=== PATIENT | female | born 1975 | race Caucasian/White ===

== ENCOUNTER 2017-12-24 04:14 | Inpatient (IN) | payer MEDICARE, MEDICAID ==
[2017-12-24] VITALS (7 sets, daily range): BP systolic 97–158; BP diastolic 60–88; PULSE 52–88; RESP 16–17; TEMP 98.2–98.5; O2SAT 93–98
[~2017-12-24] VITALS: Ht 162.6 cm; Wt 106.7 kg
[~2017-12-24 04:14] MED LIST: DIAZ10TA2 PO; DICY1TAB26 PO; LISI-587 PO; LOVA40TA PO; NEUR800T PO; PERC10TA27 PO; PROT40TA PO; SUCR1S PO; VORT1TAB3 PO; WARF3TAB PO
[2017-12-24] MEDS ORDERED: MORPHINE SULFATE 8 MG/ML INJ IV PUSH ONE ×2 (04:30→05:45)
[2017-12-24] MEDS ORDERED: DIAZ10TA PO (04:31)
[2017-12-24] MEDS ORDERED: DOXE150C2 PO (04:31)
[2017-12-24] MEDS ORDERED: LOVA40TA PO (04:31)
[2017-12-24] MEDS ORDERED: XARE15TA PO (04:31)
[2017-12-24] MEDS ORDERED: GEMF600T PO (04:31)
[2017-12-24] MEDS ORDERED: VORT1TAB3 PO (04:31)
[2017-12-24] MEDS ORDERED: FENT25DI T-DERMAL (04:31)
[2017-12-24] MEDS ORDERED: HYDR-3583 PO (04:31)
[2017-12-24] MEDS ORDERED: LISI20TA3 PO (04:31)
[2017-12-24] MEDS ORDERED: AMBI10TA PO (04:31)
[2017-12-24] MEDS ORDERED: MORPHINE SULFATE 8 MG/ML INJ ONE ×2 (04:37→05:41)
--- NOTE | 2017-12-24 04:41 | PD ---
HPI Chief Complaint: Chest Pain Time Seen by Provider: 04:25 Travel History International Travel<30 days: No Contact w/Intl Traveler<30days: No Traveled to known affect area: No History of Present Illness HPI 42yo F with PMH of DVT on xarelto, anxiety and depression, HTN, anemia, chronic pain on fentanyl patch and oxycodone presents to the ED with 2 different complaints. Said she started having chest pain around 6pm and feels like someone is sitting on it. Said pain was constant and radiating to both arms. Associated with sob. Sublingual nitroglycerin help with chest pain a little. Pt also started having abdominal pain 2 hours later and pain is epigastric, severe. +vomiting. Denies any fever, dysuria, hematuria, new weakness or numbness. Pt has neuropathy in her legs. Pt had bariatric surgery, partial hysterectomy. PFSH Past Medical History Hx Anticoagulant Therapy: Yes (WARFARIN R/T DVT HX ) Arthritis: No Anxiety: Yes Depression: Yes Heart Rhythm Problems: Yes Cancer: No Cardiovascular Problems: Yes (HX OF IRREGULAR HEARTBEAT) High Cholesterol: Yes Chest Pain: No Congestive Heart Failure: No Deep Vein Thrombosis: Yes (X 2 RIGHT 1ST THEN LEFT (2 separate occurrences)) Endocrine: No Gastrointestinal Disorders: Yes (RECENT NAUSEA, VOMITING, ABD PAIN, DIARRHEA) GERD: No Genitourinary: No Hiatal Hernia: No Hypertension: Yes (WITH AND CONTINUED) Immune Disorder: No Medical other: Yes (HX OF BLOOD CLOTS, DEGENERATIVE DISC DISEASE) Musculoskeletal: Yes (STATES HX OF "BROKEN BACK") Neurologic: Yes (HX OF NEUROPATHY) Psychiatric: Yes Reproductive: Yes (HX OF PARTIAL HYSTERCTOMY) Respiratory: No Ulcer: No ?: Not : 4 Para: 2 Miscarriage: 1 : 1 Past Surgical History Section: Yes Gynecologic Surgery: Yes (CESEAREAN SX X 2, D & C, PARTIAL HYSTERECTOMY) Hysterectomy: Yes (PARTIAL ) Pacemaker: No Other Surgery: Yes Social History Alcohol Use: No Tobacco Use: No Substance Use: No Allergies-Medications (Allergen,Severity, Reaction): Coded Allergies: diatrizoate meglumine (Unverified Allergy, Severe, RESPIRATORY DISTRESS, ) IV IODINE gadobenic acid (Unverified Allergy, Severe, RESPIRATORY DISTRESS, 03/24/17) IV IODINE gadodiamide (Unverified Allergy, Severe, RESPIRATORY DISTRESS, 03/24/17) IV IODINE gadoteridol (Unverified Allergy, Severe, RESPIRATORY DISTRESS, 03/24/17) IV IODINE iodixanol (Unverified Allergy, Severe, RESPIRATORY DISTRESS, 03/24/17) IV IODINE iohexol (Unverified Allergy, Severe, RESPIRATORY DISTRESS, 03/24/17) IV IODINE penicillin G (Unverified Allergy, Severe, Hives, 03/24/17) Reported Meds & Prescriptions Reported Meds & Active Scripts Active Reported Lisinopril-Hctz 20-25 Mg Tab 1 Tab PO DAILY Gemfibrozil 600 Mg Tab 600 Mg PO BIDAC Take 30 minutes prior to breakfast and dinner. Trintellix (Vortioxetine) 20 Mg Tab 20 Mg PO DAILY Diazepam 10 Mg Tab 10 Mg PO TID PRN Doxepin (Doxepin HCl) 150 Mg Cap 150 Mg PO HS Ambien (Zolpidem Tartrate) 10 Mg Tab 10 Mg PO HS PRN Lovastatin 40 Mg Tab 40 Mg PO HS Xarelto (Rivaroxaban) 15 Mg Tab 15 Mg PO DAILY Hydrocodone-Acetaminophen 10-325 mg Tab 1 Tab PO Q6H PRN Fentanyl Patch 72 HR (Fentanyl) 25 Mcg/Hr Patch 25 Mcg T-DERMAL Q72H Review of Systems Except as stated in HPI: all other systems reviewed are Neg Physical Exam Narrative GENERAL: 42yo F in moderate distress. SKIN: Focused skin assessment warm/dry. HEAD: Atraumatic. Normocephalic. EYES: Pupils equal and round. No scleral icterus. No injection or drainage. ENT: No nasal bleeding or discharge. Mucous membranes pink and moist. NECK: Trachea midline. No JVD. CARDIOVASCULAR: Regular rate and rhythm. No murmur appreciated. RESPIRATORY: No accessory muscle use. Clear to auscultation. Breath sounds equal bilaterally. GASTROINTESTINAL: Abdomen soft, +TTP epigastric ttp. +RUQ ttp. No rebound tenderness or guarding. MUSCULOSKELETAL: No obvious deformities. No clubbing. No cyanosis. No edema. NEUROLOGICAL: Awake and alert. No obvious cranial nerve deficits. Motor grossly within normal limits. Sensation intact. Normal speech. PSYCHIATRIC: Appropriate mood and affect; insight and judgment normal. Data Data Last Documented VS Vital Signs Date Time Temp Pulse Resp B/P (MAP) Pulse Ox O2 Delivery O2 Flow Rate FiO2 12/24/17 05:11 88 16 158/88 (111) 98 Nasal Cannula 2.00 12/24/17 04:30 98.5 Orders Orders Complete Blood Count With Diff (12/24/17 04:29) Comprehensive Metabolic Panel (12/24/17 04:29) Prothrombin Time / Inr (Pt) (12/24/17 04:29) Act Partial Throm Time (Ptt) (12/24/17 04:29) Troponin I (12/24/17 04:29) Lipase (12/24/17 04:29) Chest, Single Ap (12/24/17 04:29) Ct Abd/Pel W/O Iv Contrast (12/24/17 ) Urinalysis - C+S If Indicated (12/24/17 04:29) Morphine Inj (Morphine Inj) (12/24/17 04:30) Morphine Inj (Morphine Inj) (12/24/17 04:37) Ecg Monitoring (12/24/17 04:41) Bilateral Bp Monitoring (12/24/17 04:41) Iv Access Insert/Monitor (12/24/17 04:41) Oximetry (12/24/17 04:41) Metoclopramide Inj (Reglan Inj) (12/24/17 04:45) Morphine Inj (Morphine Inj) (12/24/17 05:45) Morphine Inj (Morphine Inj) (12/24/17 05:41) Diet Npo (12/24/17 Breakfast) Vital Signs (Adult) ROSEMARY.Q4H (12/24/17 06:07) Sodium Chlor 0.9% 1000 Ml Inj (Ns 1000 M (12/24/17 06:15) Troponin I (12/24/17 10:00) Troponin I (12/24/17 14:00) Morphine Inj (Morphine Inj) (12/24/17 06:15) Ondansetron Odt (Zofran Odt) (12/24/17 06:30) Admit Order (Ed Use Only) (12/24/17 06:36) Labs Laboratory Tests Test 12/24/17 05:04 12/24/17 05:12 12/24/17 05:45 White Blood Count 9.7 TH/MM3 Red Blood Count 4.97 MIL/MM3 Hemoglobin 12.9 GM/DL Hematocrit 39.6 % Mean Corpuscular Volume 79.8 FL Mean Corpuscular Hemoglobin 26.0 PG Mean Corpuscular Hemoglobin Concent 32.6 % Red Cell Distribution Width 14.5 % Platelet Count 193 TH/MM3 Mean Platelet Volume 10.4 FL Neutrophils (%) (Auto) 83.9 % Lymphocytes (%) (Auto) 12.9 % Monocytes (%) (Auto) 2.6 % Eosinophils (%) (Auto) 0.1 % Basophils (%) (Auto) 0.5 % Neutrophils # (Auto) 8.2 TH/MM3 Lymphocytes # (Auto) 1.3 TH/MM3 Monocytes # (Auto) 0.3 TH/MM3 Eosinophils # (Auto) 0.0 TH/MM3 Basophils # (Auto) 0.0 TH/MM3 CBC Comment DIFF FINAL Differential Comment Prothrombin Time 10.7 SEC Prothromb Time International Ratio 1.1 RATIO Activated Partial Thromboplast Time 23.0 SEC Urine Color YELLOW Urine Turbidity HAZY Urine pH 7.0 Urine Specific [place] 1.028 Urine Protein 30 mg/dL Urine Glucose (UA) NEG mg/dL Urine Ketones TRACE mg/dL Urine Occult Blood NEG Urine Nitrite NEG Urine Bilirubin NEG Urine Urobilinogen 2.0 MG/DL Urine Leukocyte Esterase TRACE Urine RBC 4 /hpf Urine WBC 4 /hpf Urine Squamous Epithelial Cells 21 /hpf Urine Hyaline Casts 3 /lpf Urine Mucus MANY /lpf Microscopic Urinalysis Comment CULT NOT INDICATED Blood Urea Nitrogen 13 MG/DL Creatinine 0.79 MG/DL Random Glucose 120 MG/DL Total Protein 7.9 GM/DL Albumin 4.0 GM/DL Calcium Level 8.5 MG/DL Alkaline Phosphatase 52 U/L Aspartate Amino Transf (AST/SGOT) 15 U/L Alanine Aminotransferase (ALT/SGPT) 18 U/L Total Bilirubin 0.4 MG/DL Sodium Level 139 MEQ/L Potassium Level 3.9 MEQ/L Chloride Level 108 MEQ/L Carbon Dioxide Level 25.3 MEQ/L Anion Gap 6 MEQ/L Estimat Glomerular Filtration Rate 79 ML/MIN Troponin I LESS THAN 0.02 NG/ML Lipase 157 U/L [facility] Medical Decision Making Medical Screen Exam Complete: Yes Emergency Medical Condition: Yes Interpretation(s) EKG: NSR 89bpm. Normal axis. No ST segment elevation or depression. TWI III. Differential Diagnosis Pancreatitis vs. cholecystis vs. gastritis vs. colitis vs. ACS vs. GERD vs. chronic pain Narrative Course 42yo F with 2 different complaints. Pt has abdominal pain with nausea and vomiting since 8pm. Pt did have an episode of vomiting here. Labs reviewed, no leukocytosis. H/H normal. Troponin negative. LFTs normal. Lipase normal. UA showed WBC 4. Culture not indicated. CXR normal. CT a/p showed questionable soft tissue mass within the left lower quadrant measuring 3.6 [address]. Repeat [address] of the abdomen and pelvis utilizing oral and IV contrast is suggested to further evaluate. Prior gastric bypass. Prior hysterectomy. Pt is allergic to contrast but said it was many years ago when she had a respiratory reaction to it. Can consider premedication and repeat CT. However , pt given multiple doses of morphine and is still in a lot of pain. Will admit for pain control, further evaluation of abdominal mass and chest pain. Discussed with Dr. Najera and accepted to his service. Diagnosis Primary Impression: Intractable abdominal pain Additional Impressions: Abdominal mass Qualified Codes: R19.04 - Left lower quadrant abdominal swelling, mass and lump OTHER CHEST PAIN Admitting Information Admitting Physician Requests: it Suri Baron DO December 24, 2017 04:41
[2017-12-24] MEDS ORDERED: METOCLOPRAMIDE HCL 10 MG/2 ML VIAL IV PUSH ONE (04:45)
[2017-12-24 05:19] LABS: AUTOMATED NEUTROPHIL # 8.2 TH/MM3 (1.8-7.7); BASOPHIL % 0.5 % (0.0-2.0); EOSINOPHIL % 0.1 % (0.0-4.0); HEMATOCRIT 39.6 % (35.0-46.0); HEMOGLOBIN 12.9 GM/DL (11.6-15.3); LYMPH % 12.9 % (9.0-44.0); LYMPHOCYTE # 1.3 TH/MM3 (1.0-4.8); MEAN CELL VOLUME 79.8 FL (80.0-100.0); MEAN CORPUSCULAR HGB CONC 32.6 % (32.0-36.0); MEAN PLATELET VOLUME 10.4 FL (7.0-11.0); MONO % 2.6 % (0.0-8.0); MONOCYTE # 0.3 TH/MM3 (0-0.9); NEUT % 83.9 % (16.0-70.0); PLATELET COUNT 193 TH/MM3 (150-450); RED BLOOD COUNT 4.97 MIL/MM3 (4.00-5.30); RED CELL DISTRIBUTION WIDTH 14.5 % (11.6-17.2); WHITE BLOOD COUNT 9.7 TH/MM3 (4.0-11.0)
--- NOTE | 2017-12-24 05:21 | RADRPT ---
EXAM DATE/TIME: 12/24/2017 05:01 [facility] COMPARISON: CHEST SINGLE AP, September 28, 2015, 10:09. INDICATIONS : Chest and abdominal pain. MEDICAL HISTORY : Hypertension. SURGICAL HISTORY : None. ENCOUNTER: Initial ACUITY: 1 day PAIN SCORE: 6/10 LOCATION: Bilateral chest FINDINGS: A single view of the chest demonstrates the lungs to be symmetrically aerated without evidence of mas s, infiltrate or effusion. The cardiomediastinal contours are unremarkable. Osseous structures are intact. CONCLUSION: Normal examination. Bossman Ford Jr., MD on December 24, 2017 at 5:18 Board Certified Radiologist. This report was verified electronically.
--- NOTE | 2017-12-24 05:24 | RADRPT ---
EXAM DATE/TIME: 12/24/2017 04:45 [facility] COMPARISON: CT ABDOMEN & PELVIS W/O CONTRAST, March 16, 2016, 13:03. INDICATIONS : Mid abdominal pain. ORAL CONTRAST: No oral contrast ingested. RADIATION DOSE: 11.36 CTDIvol (mGy) MEDICAL HISTORY : Hypertension. SURGICAL HISTORY : Gastric bypass. section.Hysterectomy. ENCOUNTER: Initial ACUITY: 1 day PAIN SCALE: 7/10 LOCATION: Bilateral middle abdomen. TECHNIQUE: Volumetric scanning of the abdomen and pelvis was performed. Using automated exposure control and ad justment of the mA and/or kV according to patient size, radiation dose was kept as low as reasonably achievable to obtain optimal diagnostic quality images. DICOM format image data is available electro nically for review and comparison. FINDINGS: LOWER LUNGS: The visualized lower lungs are clear. LIVER: Homogeneous density without lesion. There is no dilation of the biliary tree. No calcified gallston es. SPLEEN: Normal size without lesion. PANCREAS: Within normal limits. KIDNEYS: Normal in size and shape. There is no mass, stone, or hydronephrosis. ADRENAL GLANDS: Within normal limits. VASCULAR: There is no aortic aneurysm. BOWEL/MESENTERY: Prior gastric bypass. There is a questionable soft tissue mass within the left lower quadrant measuri ng 3.6 x 2.2 cm. The stomach, small bowel, and colon demonstrate no acute abnormality. There is no f ree intraperitoneal air or fluid. ABDOMINAL WALL: Within normal limits. RETROPERITONEUM: There is no lymphadenopathy. BLADDER: No wall thickening or mass. REPRODUCTIVE: Prior hysterectomy. No fluid collections. INGUINAL: There is no lymphadenopathy or hernia. MUSCULOSKELETAL: Within normal limits for patient age. CONCLUSION: 1. Questionable soft tissue mass within the left lower quadrant measuring 3.6 x 2.[address] of the abdomen and pelvis utilizing oral and IV contrast is suggested to further evaluate. 2. Prior gastric bypass. 3. Prior hysterectomy. Bossman Ford Jr., MD on December 24, 2017 at 5:18 Board Certified Radiologist. This report was verified electronically.
[2017-12-24 05:26] LABS: INTERNATIONAL NORMALIZED RATIO 1.1 RATIO; PROTHROMBIN TIME - PATIENT 10.7 SEC (9.8-11.6)
[2017-12-24 05:41] LABS: BILIRUBIN, URINE NEG (NEG); BLOOD, URINE NEG (NEG); GLUCOSE,URINE NEG (NEG); HYALINE CAST, URINE 3 /lpf (RARE); KETONE, URINE TRACE mg/dL (NEG); MUCUS URINE MANY /lpf (OCC); NITRITE,URINE NEG (NEG); SQUAMOUS EPITHELIAL CELL URINE 21 /hpf (0-5); URINE COLOR YELLOW (YELLW/STRAW); URINE LEUKOCYTE ESTERASE TRACE (NEG)
[2017-12-24 06:12] LABS: ALT (GPT) 18 U/L (10-53); AST (GOT) 15 U/L (15-37); BICARBONATE 25.3 MEQ/L (21.0-32.0); BLOOD UREA NITROGEN 13 MG/DL (7-18); CALCIUM 8.5 MG/DL (8.5-10.1); CHLORIDE 108 MEQ/L (98-107); CREATININE 0.79 MG/DL (0.50-1.00); GLOMERULAR FILTRATION RATE 79 ML/MIN (>89); GLUCOSE,RANDOM 120 MG/DL (74-106); SODIUM (NA) 139 MEQ/L (136-145)
[2017-12-24 06:16] LABS: ALKALINE PHOSPHATASE 52 U/L (45-117); TOTAL BILIRUBIN ADULT 0.4 MG/DL (0.2-1.0); TOTAL PROTEIN 7.9 GM/DL (6.4-8.2); TROPONIN I LESS THAN 0.02 NG/ML (0.02-0.05)
[2017-12-24] MEDS ORDERED: ONDANSETRON ODT 4 MG TAB PO PRN ×2 (06:30→12:15)
[2017-12-24] MEDS: SODIUM CHLOR 0.9% 1000 ML INJ 1,000 ML IV SCH ×2 (06:40→13:05)
[2017-12-24] MEDS: MORPHINE SULFATE 4 MG/ML INJ IV PUSH PRN ×2 (06:41→17:21)
[2017-12-24] MEDS ORDERED: PANTOPRAZOLE SODIUM 40 MG VIAL IV PUSH ONE (06:45)
[2017-12-24] MEDS ORDERED: HYDROmorphone HCL PF 2 MG/ML VIAL IV PUSH ONE (11:45)
--- NOTE | 2017-12-24 11:58 | HHI.HP ---
[facility]TF Remy Admission Diagnosis Intractable nausea and vomiting Abdominal mass, chest pain Diagnoses: Travel History International Travel<30 Days: No Contact w/Intl Traveler <30 Da: No Traveled to Known Affected Are: No History of Present Illness 42-year-old female with a previous history of anxiety, depression, hypertension , chronic pain, peripheral neuropathy presents the emergency room with 24 hour history of intense intractable nausea and bilious and brown emesis that happened this morning about 1 AM. She states that she has had symptoms of nausea for greater than 1 year however the intensity has worsened since 4 months ago in August. She has had EGD done previously in March 2016 which revealed gastritis and a history of gastric bariatric sleeve. She reports that secondary to symptoms of intense nausea and brown in bowel vomiting she came to the emergency room for further evaluation. In addition she developed some burning substernal pain which radiating to both upper chest area this a.m. which is resolved at this time. She denies any associated shortness of breath with this symptom. She reports no history of abdominal mass. She also reports no recent history of weight loss. She did have a bowel movement last night which show no bloody stools or black stools. She usually struggles with constipation and denies any recent diarrhea. She denies symptoms of dysuria frequency urgency. She denies any recent travels and has not had any unusual food intake for the past week. She also reports a epigastric burning pain radiating up to her substernal area. Review of Systems Constitutional: DENIES: Fatigue, Fever, Weight gain, Chills, Change in appetite Endocrine: DENIES: Heat/cold intolerance Eyes: DENIES: Blurred vision, Eye pain, Vision loss Ears, nose, mouth, throat: DENIES: Hearing loss, Nasal discharge, Throat pain, Ear Pain, Sinus Pain Respiratory: DENIES: Cough, Shortness of breath Cardiovascular: COMPLAINS OF: Chest pain, DENIES: Palpitations, Dyspnea on Exertion, Lower Extremity Edema Gastrointestinal: COMPLAINS OF: Abdominal pain, Constipation, Nausea, Vomiting , DENIES: Black stools, Bloody stools, Diarrhea Genitourinary: DENIES: Dysuria Musculoskeletal: DENIES: Joint pain, Muscle aches, Stiffness Integumentary: DENIES: Rash Hematologic/lymphatic: DENIES: Bruising, Lymphadenopathy Immunologic/allergic: DENIES: Eczema Neurologic: DENIES: Headache, Localized weakness, Paresthesias Psychiatric: COMPLAINS OF: Anxiety, Depression, DENIES: Suicidal Ideation Past Family Social History Past Medical History DVT, first at age 18 second episode in 2010 on chronic anticoagulation Anxiety Depression Hypertension Anemia Hyperlipidemia Chronic pain Peripheral neuropathy PVD Past Surgical History Bariatric sleeve Partial hysterectomy 2 D&C Reported Medications Lisinopril-Hctz 20-25 Mg Tab 1 Tab PO DAILY Gemfibrozil 600 Mg Tab 600 Mg PO BIDAC Take 30 minutes prior to breakfast and dinner. Trintellix (Vortioxetine) 20 Mg Tab 20 Mg PO DAILY Diazepam 10 Mg Tab 10 Mg PO TID PRN Doxepin (Doxepin HCl) 150 Mg Cap 150 Mg PO HS Ambien (Zolpidem Tartrate) 10 Mg Tab 10 Mg PO HS PRN Lovastatin 40 Mg Tab 40 Mg PO HS Xarelto (Rivaroxaban) 15 Mg Tab 15 Mg PO DAILY Hydrocodone-Acetaminophen 10-325 mg Tab 1 Tab PO Q6H PRN Fentanyl Patch 72 HR (Fentanyl) 25 Mcg/Hr Patch 25 Mcg T-DERMAL Q72H Allergies: Coded Allergies: diatrizoate meglumine (Unverified Allergy, Severe, RESPIRATORY DISTRESS, ) IV IODINE gadobenic acid (Unverified Allergy, Severe, RESPIRATORY DISTRESS, 03/24/17) IV IODINE gadodiamide (Unverified Allergy, Severe, RESPIRATORY DISTRESS, 03/24/17) IV IODINE gadoteridol (Unverified Allergy, Severe, RESPIRATORY DISTRESS, 03/24/17) IV IODINE iodixanol (Unverified Allergy, Severe, RESPIRATORY DISTRESS, 03/24/17) IV IODINE iohexol (Unverified Allergy, Severe, RESPIRATORY DISTRESS, 03/24/17) IV IODINE penicillin G (Unverified Allergy, Severe, Hives, 03/24/17) Family History Father had prostate cancer previous history of DVTs and hyperlipidemia hypertension Social History Does not smoke cigarettes or drink alcohol Physical Exam Vital Signs Vital Signs Date Time Temp Pulse Resp B/P (MAP) Pulse Ox O2 Delivery O2 Flow Rate FiO2 5/17/18 08:41 98.2 66 16 138/75 (96) 94 12/24/17 07:52 12/24/17 06:46 18 12/24/17 05:11 88 16 158/88 (111) 98 Nasal Cannula 2.00 12/24/17 05:10 96 12/24/17 04:30 98.5 12/24/17 04:17 85 16 130/78 (95) 97 Physical Exam GENERAL: This is a well-nourished, well-developed patient, in no apparent distress. SKIN: No rashes, ecchymoses or lesions. Cool and dry. HEAD: Atraumatic. Normocephalic. No temporal or scalp tenderness. EYES: Pupils equal round and reactive. Extraocular motions intact. No scleral icterus. No injection or drainage. ENT: Nose without bleeding, purulent drainage or septal hematoma. Throat without erythema, tonsillar hypertrophy or exudate. Uvula midline. Airway patent. NECK: Trachea midline. No JVD or lymphadenopathy. Supple, nontender, no meningeal signs. CARDIOVASCULAR: Regular rate and rhythm without murmurs, gallops, or rubs. Chest wall substernal tenderness reproducible to person place time and situation RESPIRATORY: Clear to auscultation. Breath sounds equal bilaterally. No wheezes , rales, or rhonchi. GASTROINTESTINAL: Epigastric tenderness nondistended normoactive bowel sounds, no rebound or guarding. MUSCULOSKELETAL: Extremities without clubbing, cyanosis, or edema. No joint tenderness, effusion, or edema noted. No calf tenderness. Negative Homans sign bilaterally. NEUROLOGICAL: Awake and alert to person place time and situation,. Cranial nerves II through XII intact. Motor and sensory grossly within normal limits. Five out of 5 muscle strength in all muscle groups. Normal speech. Laboratory Laboratory Tests Test 12/24/17 05:04 12/24/17 05:12 12/24/17 05:45 White Blood Count 9.7 Red Blood Count 4.97 Hemoglobin 12.9 Hematocrit 39.6 Mean Corpuscular Volume 79.8 Mean Corpuscular Hemoglobin 26.0 Mean Corpuscular Hemoglobin Concent 32.6 Red Cell Distribution Width 14.5 Platelet Count 193 Mean Platelet Volume 10.4 Neutrophils (%) (Auto) 83.9 Lymphocytes (%) (Auto) 12.9 Monocytes (%) (Auto) 2.6 Eosinophils (%) (Auto) 0.1 Basophils (%) (Auto) 0.5 Neutrophils # (Auto) 8.2 Lymphocytes # (Auto) 1.3 Monocytes # (Auto) 0.3 Eosinophils # (Auto) 0.0 Basophils # (Auto) 0.0 CBC Comment DIFF FINAL Differential Comment Prothrombin Time 10.7 Prothromb Time International Ratio 1.1 Activated Partial Thromboplast Time 23.0 Urine Color YELLOW Urine Turbidity HAZY Urine pH 7.0 Urine Specific [place] 1.028 Urine Protein 30 Urine Glucose (UA) NEG Urine Ketones TRACE Urine Occult Blood NEG Urine Nitrite NEG Urine Bilirubin NEG Urine Urobilinogen 2.0 Urine Leukocyte Esterase TRACE Urine RBC 4 Urine WBC 4 Urine Squamous Epithelial Cells 21 Urine Hyaline Casts 3 Urine Mucus MANY Microscopic Urinalysis Comment CULT NOT INDICATED Blood Urea Nitrogen 13 Creatinine 0.79 Random Glucose 120 Total Protein 7.9 Albumin 4.0 Calcium Level 8.5 Alkaline Phosphatase 52 Aspartate Amino Transf (AST/SGOT) 15 Alanine Aminotransferase (ALT/SGPT) 18 Total Bilirubin 0.4 Sodium Level 139 Potassium Level 3.9 Chloride Level 108 Carbon Dioxide Level 25.3 Anion Gap 6 Estimat Glomerular Filtration Rate 79 Troponin I LESS THAN 0.02 Lipase 157 Result Diagram: 12/24/17 0504 12/24/17 0545 Imaging EKG shows sinus rhythm with heart rate 89 Last Impressions Chest X-Ray 12/24/17 0429 Signed Impressions: Service Date/Time: December 05:01 - CONCLUSION: Normal examination. Bossman Ford Jr., MD Abdomen/Pelvis CT 12/24/17 0000 Signed Impressions: Service Date/Time: December 04:45 - CONCLUSION: 1. Questionable soft tissue mass within the left lower quadrant measuring 3.6 x 2.[address] of the abdomen and pelvis utilizing oral and IV contrast is suggested to further evaluate. 2. Prior gastric bypass. 3. Prior hysterectomy. MD Brendan Ann Jr. VTE Risk Assessment Brendan VTE Risk Assessment: Mod/High Risk (score >= 2) Caprini Risk Assessment Model Point Value = 1 Point Value = 2 Point Value = 3 Point Value = 5 Age 41-60 Minor surgery BMI > 25 kg/m2 Swollen legs Varicose veins or History of unexplained or recurrent spontaneous Oral contraceptives or hormone replacement Sepsis (< 1 month) Serious lung disease, including pneumonia (< 1 month) Abnormal pulmonary function Acute myocardial infarction Congestive heart failure (< 1 month) History of inflammatory bowel disease Medical patient at bed rest Age 61-74 Arthroscopic surgery Major open surgery (> 45 min) Laparoscopic surgery (> 45 min) Malignancy Confined to bed (> 72 hours) Immobilizing plaster cast Central venous access Age >= 75 History of VTE Family history of VTE Factor V Leiden Prothrombin [id number] Lupus anticoagulant Anticardiolipin antibodies Elevated serum homocysteine Heparin-induced thrombocytopenia Other congenital or acquired thrombophilia Stroke (< 1 month) Elective arthroplasty Hip, pelvis, or leg fracture Acute spinal cord injury (< 1 month) Prophylaxis Regimen Total Risk Factor Score Risk Level Prophylaxis Regimen 0-1 Low Early ambulation 2 Moderate Order ONE of the following: *Sequential Compression Device (SCD) *Heparin 5000 units SQ BID 3-4 Higher Order ONE of the following medications: *Heparin 5000 units SQ TID *Enoxaparin/Lovenox 40 mg SQ daily (WT < 150 kg, CrCl > 30 mL/min) *Enoxaparin/Lovenox 30 mg SQ daily (WT < 150 kg, CrCl > 10-29 mL/min) *Enoxaparin/Lovenox 30 mg SQ BID (WT < 150 kg, CrCl > 30 mL/min) AND/OR *Sequential Compression Device (SCD) 5 or more Highest Order ONE of the following medications: *Heparin 5000 units SQ TID (Preferred with Epidurals) *Enoxaparin/Lovenox 40 mg SQ daily (WT < 150 kg, CrCl > 30 mL/min) *Enoxaparin/Lovenox 30 mg SQ daily (WT < 150 kg, CrCl > 10-29 mL/min) *Enoxaparin/Lovenox 30 mg SQ BID (WT < 150 kg, CrCl > 30 mL/min) AND *Sequential Compression Device (SCD) Assessment and Plan Assessment and Plan 42-year-old female presents with worsening nausea and bilious dark emesis associated with epigastric pain with radiation towards her substernal area. 1. Epigastric abdominal pain with associated nausea vomiting-patient with abnormal CT abdomen pelvis, at this time will obtain a CT abdomen pelvis with IV contrast with premedication. Patient states that contrast she has had previous testing with with premedication 20 years ago in [place] with no adverse reaction. In addition, will obtain a GI consult. She did have a EGD back in March 2016 with findings of gastritis. We will continue with IV fluid hydration, IV antiemetics, clear liquid diet with supportive care and pain control. 2. Chest pain, atypical likely related to her GI symptoms however due to her history of previous DVT will obtain a CT pulmonary angiogram to rule out underlying PE if D- dimer elevated with the next lab draw. Repeat serial cardiac enzymes and EKG to rule out any other cardiac etiology. No complaints of SOB at this time. 3. Hypertension, chronic resume lisinopril HCTZ - 4. History of DVT -continue with home Xarelto 5. DVT prophylaxis Xarelto 6. History of chronic painfollow-up with primary care physician resume home fentanyl patch Annette Arellano MD December 24, 2017 11:58
[2017-12-24] MEDS ORDERED: BISACODYL 10 MG SUPP RECTAL PRN (12:00)
[2017-12-24] MEDS ORDERED: NALOXONE HCL 0.4 MG/ML AMP IV PUSH PRN (12:00)
[2017-12-24] MEDS ORDERED: predniSONE 50 MG TAB PO SCH (12:00)
[2017-12-24] MEDS ORDERED: MAGNESIUM HYDROXIDE SUSP 30 ML CUP PO PRN (12:00)
[2017-12-24] MEDS ORDERED: ACETAMINOPHEN/HYDROcodone 325 MG/5 MG TAB PO PRN (12:00)
[2017-12-24] MEDS ORDERED: ACETAMINOPHEN 325 MG TAB PO PRN (12:00)
[2017-12-24] MEDS ORDERED: HYDROmorphone HCL PF 1 MG/ML VIAL IV PUSH PRN ×2 (12:00)
[2017-12-24] MEDS ORDERED: SENNOSIDES 8.6 MG TAB PO PRN (12:00)
[2017-12-24] MEDS ORDERED: LACTULOSE SYRUP 20 GM/30 ML CUP PO PRN (12:00)
[2017-12-24] MEDS ORDERED: diphenhydrAMINE HCL 50 MG CAP PO ONE (12:15)
[2017-12-24] MEDS: PANTOPRAZOLE SODIUM 40 MG VIAL IV PUSH SCH (13:00)
[2017-12-24] MEDS ORDERED: diphenhydrAMINE HCL 50 MG/ML VIAL IV PUSH PRN (13:00)
[2017-12-24] MEDS: METOCLOPRAMIDE HCL 10 MG/2 ML VIAL IV PUSH SCH ×2 (13:04→22:00)
--- NOTE | 2017-12-24 13:23 | PD.CONS ---
HPI History of Present Illness This is a 42 year old female with hx gastric sleeve who presented to ER for chest and abd pain, n/v. She has had chronic nausea over the last year. Last night she started vomiting brown emesis frequently. She also started having stabbing epigastric pain last night. Pain is intermittent. Denies blood in emesis, coffee grounds, diarrhea, blood in stool, black tarry stool. She was evaluated by our service for similar in 2016 and had EGD showing gastritis, gastric sleeve surgery. No cause for her sx was found. She had colonoscopy 2 y ago in [place] and there were no abnormal findings. She xarelto for DVTs. 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 Anxiety Depression Hypertension Anemia Hyperlipidemia Chronic pain Peripheral neuropathy PVD Past Surgical History Bariatric sleeve Partial hysterectomy 2 D&C (Shanique Koch) Coded Allergies: diatrizoate meglumine (Unverified Allergy, Severe, RESPIRATORY DISTRESS, ) IV IODINE gadobenic acid (Unverified Allergy, Severe, RESPIRATORY DISTRESS, 03/24/17) IV IODINE gadodiamide (Unverified Allergy, Severe, RESPIRATORY DISTRESS, 03/24/17) IV IODINE gadoteridol (Unverified Allergy, Severe, RESPIRATORY DISTRESS, 03/24/17) IV IODINE iodixanol (Unverified Allergy, Severe, RESPIRATORY DISTRESS, 03/24/17) IV IODINE iohexol (Unverified Allergy, Severe, RESPIRATORY DISTRESS, 03/24/17) IV IODINE penicillin G (Unverified Allergy, Severe, Hives, 03/24/17) Family History Father had prostate cancer previous history of DVTs and hyperlipidemia hypertension Social History Does not smoke cigarettes or drink alcohol denies illicit drug use (Shanique Koch) Review of Systems Constitutional: DENIES: Fever Endocrine: DENIES: Polydipsia Eyes: DENIES: Blurred vision Ears, nose, mouth, throat: DENIES: Hearing loss Respiratory: COMPLAINS OF: Cough Cardiovascular: DENIES: Chest pain Gastrointestinal: COMPLAINS OF: Abdominal pain, Nausea, Vomiting, DENIES: Black stools, Bloody stools, Diarrhea, Hematemesis Genitourinary: DENIES: Hematuria Musculoskeletal: DENIES: Muscle aches Integumentary: DENIES: Abnormal pigmentation Hematologic/lymphatic: DENIES: Bruising Immunologic/allergic: DENIES: Eczema Neurologic: DENIES: Abnormal gait Psychiatric: DENIES: Confusion (Shanique Koch) GI Exam Vitals I&O Vital Signs Date Time Temp Pulse Resp B/P (MAP) Pulse Ox O2 Delivery O2 Flow Rate FiO2 12/24/17 08:41 98.2 66 16 138/75 (96) 94 12/24/17 07:52 12/24/17 06:46 18 12/24/17 05:11 88 16 158/88 (111) 98 Nasal Cannula 2.00 12/24/17 05:10 96 12/24/17 04:30 98.5 12/24/17 04:17 85 16 130/78 (95) 97 Imaging Last Impressions Chest X-Ray 12/24/17 0429 Signed Impressions: Service Date/Time: December 05:01 - CONCLUSION: Normal examination. Bossman Ford Jr., MD Abdomen/Pelvis CT 12/24/17 0000 Signed Impressions: Service Date/Time: December 04:45 - CONCLUSION: 1. Questionable soft tissue mass within the left lower quadrant measuring 3.6 x 2[address] of the abdomen and pelvis utilizing oral and IV contrast is suggested to further evaluate. 2. Prior gastric bypass. 3. Prior hysterectomy. Bossman Ford Jr., MD Laboratory Test 12/24/17 05:04 12/24/17 05:12 12/24/17 05:45 White Blood Count 9.7 TH/MM3 Red Blood Count 4.97 MIL/MM3 Hemoglobin 12.9 GM/DL Hematocrit 39.6 % Mean Corpuscular Volume 79.8 FL Mean Corpuscular Hemoglobin 26.0 PG Mean Corpuscular Hemoglobin Concent 32.6 % Red Cell Distribution Width 14.5 % Platelet Count 193 TH/MM3 Mean Platelet Volume 10.4 FL Neutrophils (%) (Auto) 83.9 % Lymphocytes (%) (Auto) 12.9 % Monocytes (%) (Auto) 2.6 % Eosinophils (%) (Auto) 0.1 % Basophils (%) (Auto) 0.5 % Neutrophils # (Auto) 8.2 TH/MM3 Lymphocytes # (Auto) 1.3 TH/MM3 Monocytes # (Auto) 0.3 TH/MM3 Eosinophils # (Auto) 0.0 TH/MM3 Basophils # (Auto) 0.0 TH/MM3 CBC Comment DIFF FINAL Differential Comment Prothrombin Time 10.7 SEC Prothromb Time International Ratio 1.1 RATIO Activated Partial Thromboplast Time 23.0 SEC Urine Color YELLOW Urine Turbidity HAZY Urine pH 7.0 Urine Specific [place] 1.028 Urine Protein 30 mg/dL Urine Glucose (UA) NEG mg/dL Urine Ketones TRACE mg/dL Urine Occult Blood NEG Urine Nitrite NEG Urine Bilirubin NEG Urine Urobilinogen 2.0 MG/DL Urine Leukocyte Esterase TRACE Urine RBC 4 /hpf Urine WBC 4 /hpf Urine Squamous Epithelial Cells 21 /hpf Urine Hyaline Casts 3 /lpf Urine Mucus MANY /lpf Microscopic Urinalysis Comment CULT NOT INDICATED Blood Urea Nitrogen 13 MG/DL Creatinine 0.79 MG/DL Random Glucose 120 MG/DL Total Protein 7.9 GM/DL Albumin 4.0 GM/DL Calcium Level 8.5 MG/DL Alkaline Phosphatase 52 U/L Aspartate Amino Transf (AST/SGOT) 15 U/L Alanine Aminotransferase (ALT/SGPT) 18 U/L Total Bilirubin 0.4 MG/DL Sodium Level 139 MEQ/L Potassium Level 3.9 MEQ/L Chloride Level 108 MEQ/L Carbon Dioxide Level 25.3 MEQ/L Anion Gap 6 MEQ/L Estimat Glomerular Filtration Rate 79 ML/MIN Troponin I LESS THAN 0.02 NG/ML Lipase 157 U/L Physical Examination HEENT: PERRL; normocephalic; atraumatic; no jaundice. CHEST: CTA CARDIAC: RRR ABDOMEN: Soft, nondistended, epigastric and LUQ TTP; no hepatosplenomegaly; bowel sounds are present in all four quadrants. EXTREMITIES: No clubbing, cyanosis, or edema. SKIN: Normal; no rash; no jaundice. STEM CUTTER: No focal deficits; alert and oriented times three. (Shanique Koch) Assessment and Plan Plan ASSESSMENT - abd pain, n/v - unclear etiology. hx nausea for 1 y. vomiting and epigastrid pain started last night gastritis vs PUD vs other. last EGD 2015 showed gastritis, gastric sleeve. CT showed questionable soft tsu mass, recommended CT with IV contrast. PE being ruled out PLAN - await CT with iv contrast - EGD in am - obtain consent - NPO after MN - hold xarelto - ok for ice chips or clears if tolerated - further recs to follow pt seen by myself and Dr Rodriguez and this note is on her behalf (Shanique Koch) Physician Comments seen, examined agree with above await repeat ct , if confirmed abnormality we will add colonoscopy to egd states she unintentionally lost 18 lbs in the last few month (Aurora Rodriguez MD) Shanique Koch December 24, 2017 13:23 Aurora Rodriguez MD December 24, 2017 15:48
[2017-12-24] MEDS ORDERED: DIATRIZOATE MEGLUM/DIATRIZOATE SOD 9 ML CUP PO ONE (15:30)
[2017-12-24] MEDS: predniSONE 50 MG TAB PO SCH (22:00)
[2017-12-24] MEDS ORDERED: HYDROmorphone HCL PF 0.5 MG/0.5 ML SYRINGE IV PRN (22:15)
[2017-12-24] MEDS: HYDROmorphone HCL PF 0.5 MG/0.5 ML SYRINGE IV PRN (22:40)
[2017-12-25] MEDS: predniSONE 50 MG TAB PO SCH ×2 (03:00→07:31)
[2017-12-25 03:23] VITALS: BP 104/53; PULSE 51; RESP 17; TEMP 98.2; O2SAT 97
[2017-12-25] MEDS: METOCLOPRAMIDE HCL 10 MG/2 ML VIAL IV PUSH SCH ×3 (05:32→20:03)
[2017-12-25] MEDS: SODIUM CHLOR 0.9% 1000 ML INJ 1,000 ML IV SCH ×3 (06:24→19:59)
[2017-12-25 07:22] VITALS: BP 105/65; PULSE 51; RESP 18; TEMP 97.7; O2SAT 97
[2017-12-25] MEDS ORDERED: DIATRIZOATE MEGLUM/DIATRIZOATE SOD 9 ML CUP PO ONE (07:30)
[2017-12-25] MEDS ORDERED: diphenhydrAMINE HCL 50 MG CAP PO ONE (09:00)
[2017-12-25] MEDS: HYDROmorphone HCL PF 0.5 MG/0.5 ML SYRINGE IV PRN ×2 (09:26→18:24)
[2017-12-25] MEDS ORDERED: IOHEXOL 350 MG/ML 10 ML VIAL (for RAD DIAG) IVCONTRAST ONE (10:02)
--- NOTE | 2017-12-25 10:16 | RADRPT ---
EXAM DATE/TIME: 12/25/2017 09:54 [facility] COMPARISON: No previous studies available for comparison. INDICATIONS : Short of breath IV CONTRAST: 72 cc Omnipaque 350 (iohexol) IV ; Cumulative dose for multiple exams. RADIATION DOSE: 9.30 CTDIvol (mGy) MEDICAL HISTORY : Deep venous thrombosis. Constipation SURGICAL HISTORY : Gastric bypass. Hysterectomy. ENCOUNTER: Initial ACUITY: 2 days PAIN SCALE: 0/10 LOCATION: chest TECHNIQUE: Volumetric scanning of the chest was performed using a pulmonary embolism protocol MIP images were re constructed. Using automated exposure control and adjustment of the mA and/or kV according to patien t size, radiation dose was kept as low as reasonably achievable to obtain optimal diagnostic quality images. DICOM format image data is available electronically for review and comparison. Follow-up recommendations for detected pulmonary nodules are based at a minimum on nodule size and pa tient risk factors according to Fleischner Society Guidelines. FINDINGS: There is no evidence of pneumonia. A noncalcified nodule in the superior right lower lobe measuring 3 .5 mm is identified. Lungs are otherwise clear. There is excellent visualization of the pulmonary art erial tree. There are linear filling defects within the right proximal interlobar and right lower lob e branches, appearance suggestive of subacute or chronic pulmonary emboli. There are some filling def ects further distally in the lower lobes subsegmental branches. CONCLUSION: There are pulmonary emboli seen within the right proximal interlobar and lower lobar branches, appear ance suggests at least subacute to chronic component however there may be acute thrombus in the dista l branches. There is a noncalcified nodule in the right lower lobe. Pierre Haider MD on December 25, 2017 at 10:11 Board Certified Radiologist. This report was verified electronically.
--- NOTE | 2017-12-25 10:17 | RADRPT ---
EXAM DATE/TIME: 12/25/2017 09:54 [facility] COMPARISON: No previous studies available for comparison. INDICATIONS : Abdominal pain IV CONTRAST: 72 cc Omnipaque 350 (iohexol) IV ; Cumulative dose for multiple exams. ORAL CONTRAST: Partial prescribed oral contrast ingested. RADIATION DOSE: 3.42 CTDIvol (mGy) MEDICAL HISTORY : Deep venous thrombosis. Constipation SURGICAL HISTORY : CABG Hysterectomy. ENCOUNTER: Initial ACUITY: 3 days PAIN SCALE: 0/10 LOCATION: Abdomen/pelvis Patient was premedicated for underlying contrast media allergy. TECHNIQUE: Volumetric scanning of the abdomen and pelvis was performed. Using automated exposure control and ad justment of the mA and/or kV according to patient size, radiation dose was kept as low as reasonably achievable to obtain optimal diagnostic quality images. DICOM format image data is available electro nically for review and comparison. FINDINGS: Lung bases are clear. Osseous structures are intact. No pleural or pericardial effusions are seen. Th e patient is status post gastric bypass. The spleen, pancreas, adrenals, liver are unremarkable. The patient is status post hysterectomy and cholecystectomy. Appendix is normal. Urinary bladder is unrem arkable. No evidence of bowel obstruction. No free fluid or free air. CONCLUSION: No acute disease. Pierre Haider MD on December 25, 2017 at 10:14 Board Certified Radiologist. This report was verified electronically.
[2017-12-25] MEDS ORDERED: PROPOFOL 200 MG/20 ML AMP IV ONE (10:47)
[2017-12-25] MEDS ORDERED: GLYCOPYRROLATE 1 MG/5 ML SYRINGE IV PUSH ONE (10:47)
[2017-12-25] MEDS ORDERED: LIDOCAINE HCL 1% PF 5 ML SYRINGE OTHER ONE (10:47)
--- NOTE | 2017-12-25 11:52 | EKG ---
Date Performed: 12/24/2017 Time Performed: 04:21:08 PTAGE: 42 years EKG: Sinus rhythm POSSIBLE LEFT ATRIAL ENLARGEMENT BORDERLINE ECG NO PREVIOUS TRACING DOCTOR: Clair Carr Interpretating Date/Time 12/25/2017 11:48:38
[2017-12-25 12:02] VITALS: BP 146/82; PULSE 65; RESP 18; TEMP 98.4; O2SAT 100
[2017-12-25] MEDS: PANTOPRAZOLE SODIUM 40 MG VIAL IV PUSH SCH (12:47)
[2017-12-25] MEDS ORDERED: METOPROLOL TARTRATE 25 MG TAB PO PRN (13:30)
[2017-12-25] MEDS ORDERED: SODIUM CHLORID 0.9% 500 ML IV PRN (14:00)
[2017-12-25] MEDS ORDERED: LACTATED RINGER'S 1000 ML IV PRN (14:00)
--- NOTE | 2017-12-25 15:50 | GIPROC ---
[facility] [address] [facility]. [facility], [address] EGD PROCEDURE REPORT EXAM DATE: 12/25/2017 PATIENT NAME: Ashlie Meehan MR #: [id number] BIRTHDATE: 1975 ATTENDING: Aurora Rodriguez MD ORDER #: [id number] DELI CUTTER SLICER: Jane Contreras STATUS: inpatient INDICATIONS: The patient is a 42 yr old female here for an EGD due to abdominal pain PROCEDURE PERFORMED: EGD w/ biopsy MEDICATIONS: None and Per Anesthesia. TOPICAL ANESTHETIC: none CONSENT: The patient understands the risks and benefits of the procedure and understands that these risks include, but are not limited to: sedation, allergic reaction, infection, perforation and/or bleeding. Alternative means of evaluation and treatment include, among others: physical exam, x-rays, and/or surgical intervention. The patient elects to proceed with this endoscopic procedure. medical equipment was checked for proper function. Hand hygiene and appropriate measures for infection prevention was taken. After the risks, benefits and alternatives of the procedure were thoroughly explained, Informed consent was verified, confirmed and timeout was successfully executed by the treatment team. The patient was anesthetized with topical anesthesia and the Pentax EG-[id number] endoscope was introduced through the mouth and advanced to the second portion of the duodenum. Retroflexed views revealed a hiatal hernia The gastroscope was then slowly withdrawn and removed. Duodenum normal-biopsy gastritis antrum-biopsy esophagitis distal biopsy. ADVERSE EVENTS: There were no complications. IMPRESSIONS: 1. Duodenum normal-biopsy gastritis antrum-biopsy esophagitis distal biopsy 2. Retroflexed views revealed a hiatal hernia RECOMMENDATIONS: 1. Await biopsy results. Biopsy results will not be ready for 7-10 days. If you don't hear from us in two weeks, call our office for biopsy results. 2. Anti-reflux regimen 3. Continue PPI PATIENT CONDITION: stable DISPOSITION: Inpatient REPEAT EXAM: Return 1 year EGD Aurora Rodriguez MD eSigned: Aurora Rodriguez MD 12/25/2017 3:49 PM cc: PATIENT NAME: Ashlie Meehan MR#: [id number]
--- NOTE | 2017-12-25 16:08 | HHI.PR ---
Subjective Remarks Patient seen status post EGD. Some lethargy when seen, but able to converse. Repeat CT findings (no mass) are discussed. No ulcer evidence on EGD. Objective Vital Signs Date Time Temp Pulse Resp B/P (MAP) Pulse Ox O2 Delivery O2 Flow Rate FiO2 12/25/17 15:41 99.0 80 18 137/74 (95) 100 12/25/17 12:50 18 12/25/17 12:02 98.4 65 18 146/82 (103) 100 12/25/17 07:22 97.7 51 18 105/65 (78) 97 12/25/17 03:23 98.2 51 17 104/53 (70) 97 12/24/17 23:34 98.5 52 17 97/60 (72) 93 12/24/17 20:19 98.4 58 17 116/63 (80) 97 12/24/17 20:14 18 I/O 12/24/17 12/24/17 12/24/17 12/25/17 12/25/17 12/25/17 07:00 15:00 23:00 07:00 15:00 23:00 Intake Total 500 ml 400 ml Balance 500 ml 400 ml Intake Oral 500 ml Other 400 ml Result Diagram: 12/24/17 0504 12/24/17 0545 Objective Remarks GENERAL: NAD, A&Ox3 SKIN: Warm and dry. HEAD: Normocephalic. EYES: No scleral icterus. No injection or drainage. NECK: Supple, trachea midline. No JVD or lymphadenopathy. CARDIOVASCULAR: Regular rate and rhythm without murmurs, gallops, or rubs. RESPIRATORY: Breath sounds equal bilaterally. No accessory muscle use. GASTROINTESTINAL: Abdomen soft, non-tender, nondistended. MUSCULOSKELETAL: No cyanosis, or edema. BACK: Nontender without obvious deformity. No CVA tenderness. A/P Problem List: (1) Intractable abdominal pain ICD Code: R10.9 - Unspecified abdominal pain Status: Acute Assessment and Plan 42-year-old female admitted with epigastric pain and bilious emesis Abdominal Pain Gastritis Status post EGD Report pending Diet to resume after anesthesia wears off. PPI started Monitor for PO intake tolerance Possible DC in AM Chest Pain No evidence of cardiac etiology Negative findings for PE Etiology is likely gastric HTN Follow BP Continue Lisinopril and HCTZ Chronic Pain Fentanyl Patch continued Hx of DVT Xarelto DVT Prophylaxis Xarelto Discharge Planning DC to be considered if patient tolerates PO intake. Varinder Odonnell MD December 25, 2017 16:08
[2017-12-25 19:50] VITALS: PULSE 57
[2017-12-25 20:00] VITALS: BP 134/73; PULSE 59; RESP 18; TEMP 98.5; O2SAT 100
[2017-12-25] MEDS ORDERED: ZOLPIDEM TARTRATE 10 MG TAB PO ONE (20:45)
[2017-12-25 23:53] VITALS: PULSE 45
[2017-12-26] VITALS (9 sets, daily range): BP systolic 110–138; BP diastolic 54–84; PULSE 50–79; RESP 18–19; TEMP 98.2–98.6; O2SAT 97–100
[2017-12-26] MEDS: SODIUM CHLOR 0.9% 1000 ML INJ 1,000 ML IV SCH ×2 (02:33→17:38)
[2017-12-26] MEDS: METOCLOPRAMIDE HCL 10 MG/2 ML VIAL IV PUSH SCH ×3 (05:19→20:13)
[2017-12-26 08:30] LABS: AUTOMATED NEUTROPHIL # 6.6 TH/MM3 (1.8-7.7); BASOPHIL # 0.1 TH/MM3 (0-0.2); BASOPHIL % 0.6 % (0.0-2.0); EOSINOPHIL # 0.1 TH/MM3 (0-0.4); EOSINOPHIL % 0.7 % (0.0-4.0); HEMATOCRIT 34.4 % (35.0-46.0); HEMOGLOBIN 11.3 GM/DL (11.6-15.3); LYMPH % 29.7 % (9.0-44.0); LYMPHOCYTE # 3.2 TH/MM3 (1.0-4.8); MEAN CELL VOLUME 80.7 FL (80.0-100.0); MEAN CORPUSCULAR HEMOGLOBIN 26.5 PG (27.0-34.0); MEAN CORPUSCULAR HGB CONC 32.9 % (32.0-36.0); MEAN PLATELET VOLUME 10.4 FL (7.0-11.0); MONO % 6.9 % (0.0-8.0); MONOCYTE # 0.7 TH/MM3 (0-0.9); NEUT % 62.1 % (16.0-70.0); PLATELET COUNT 160 TH/MM3 (150-450); RED BLOOD COUNT 4.26 MIL/MM3 (4.00-5.30); RED CELL DISTRIBUTION WIDTH 14.2 % (11.6-17.2); WHITE BLOOD COUNT 10.7 TH/MM3 (4.0-11.0)
[2017-12-26] MEDS ORDERED: DIAZEPAM 10 MG TAB PO PRN (08:30)
[2017-12-26] MEDS ORDERED: fentaNYL 25 MCG/HR PATCH T-DERMAL SCH (09:00)
[2017-12-26] MEDS ORDERED: NON-FORMULARY DRUG (Lisinopril-Hctz 1 TAB) PO SCH (09:00)
[2017-12-26] MEDS ORDERED: TRINTELLIX 20 MG PO SCH (09:00)
[2017-12-26] MEDS ORDERED: NON-FORMULARY DRUG (Vortioxetine (Trintellix) 20 MG) PO SCH (09:00)
[2017-12-26] MEDS: LISINOPRIL 20 MG TAB PO SCH (09:00)
[2017-12-26] MEDS: HYDROCHLOROTHIAZIDE 25 MG TAB PO SCH (09:00)
[2017-12-26] MEDS ORDERED: HEPARIN-D5W 25,000 U/250 ML 250 ML IV PRN (10:30)
[2017-12-26] MEDS: PANTOPRAZOLE SODIUM 40 MG VIAL IV PUSH SCH (12:32)
[2017-12-26] MEDS: ACETAMINOPHEN/HYDROcodone 325 MG/7.5 MG TAB PO PRN ×2 (12:38→18:23)
[2017-12-26 14:04] LABS: HEMATOCRIT 36.5 % (35.0-46.0); HEMOGLOBIN 11.7 GM/DL (11.6-15.3); MEAN CELL VOLUME 80.6 FL (80.0-100.0); MEAN CORPUSCULAR HEMOGLOBIN 25.9 PG (27.0-34.0); MEAN CORPUSCULAR HGB CONC 32.1 % (32.0-36.0); MEAN PLATELET VOLUME 10.3 FL (7.0-11.0); PLATELET COUNT 159 TH/MM3 (150-450); RED BLOOD COUNT 4.53 MIL/MM3 (4.00-5.30); RED CELL DISTRIBUTION WIDTH 14.7 % (11.6-17.2); WHITE BLOOD COUNT 10.2 TH/MM3 (4.0-11.0)
[2017-12-26 14:12] LABS: INTERNATIONAL NORMALIZED RATIO 1.1 RATIO; PROTHROMBIN TIME - PATIENT 10.8 SEC (9.8-11.6)
--- NOTE | 2017-12-26 14:19 | HHI.GIFU ---
Subjective Remarks Pt resting in bed Complaining of cough Reports some nausea, denies emesis Has not had much of an appetite, states this has been since she hasn't been feeling well No BM since admission, history of constipation secondary to Fentanyl patch at home Mild epigastric pain, tender to palpation, intermittent, denies relation to food (Mary Carmen Ruiz) Objective Vitals I&O Vital Signs Date Time Temp Pulse Resp B/P (MAP) Pulse Ox O2 Delivery O2 Flow Rate FiO2 12/26/17 12:00 98.6 79 18 138/84 (102) 100 12/26/17 08:00 98.3 66 18 121/70 (87) 98 12/26/17 04:00 98.3 69 19 111/66 (81) 97 12/26/17 03:50 56 12/26/17 00:00 98.2 50 18 115/54 (74) 97 12/25/17 23:53 45 12/25/17 20:00 98.5 59 18 134/73 (93) 100 12/25/17 19:50 57 12/25/17 15:41 99.0 80 18 137/74 (95) 100 I/O 12/25/17 12/25/17 12/25/17 12/26/17 12/26/17 12/26/17 07:00 15:00 23:00 07:00 15:00 23:00 Intake Total 500 ml 400 ml 1760 ml Balance 500 ml 400 ml 1760 ml Intake Oral 500 ml 360 ml IV Total 1400 ml Other 400 ml # Voids 1 # Bowel Movements 0 Laboratory Laboratory Tests Test 12/26/17 08:00 12/26/17 13:09 White Blood Count 10.7 10.2 Red Blood Count 4.26 4.53 Hemoglobin 11.3 11.7 Hematocrit 34.4 36.5 Mean Corpuscular Volume 80.7 80.6 Mean Corpuscular Hemoglobin 26.5 25.9 Mean Corpuscular Hemoglobin Concent 32.9 32.1 Red Cell Distribution Width 14.2 14.7 Platelet Count 160 159 Mean Platelet Volume 10.4 10.3 Neutrophils (%) (Auto) 62.1 Lymphocytes (%) (Auto) 29.7 Monocytes (%) (Auto) 6.9 Eosinophils (%) (Auto) 0.7 Basophils (%) (Auto) 0.6 Neutrophils # (Auto) 6.6 Lymphocytes # (Auto) 3.2 Monocytes # (Auto) 0.7 Eosinophils # (Auto) 0.1 Basophils # (Auto) 0.1 CBC Comment DIFF FINAL Differential Comment Imaging Last Impressions CT Angiography 12/25/17 0000 Signed Impressions: Service Date/Time: Monday, December 25, 2017 09:54 - CONCLUSION: There are pulmonary emboli seen within the right proximal interlobar and lower lobar branches, appearance suggests at least subacute to chronic component however there may be acute thrombus in the distal branches. There is a noncalcified nodule in the right lower lobe. Pierre Haider MD Abdomen/Pelvis CT 12/25/17 0000 Signed Impressions: Service Date/Time: Monday, December 25, 2017 09:54 - CONCLUSION: No acute disease. Pierre Haider MD Chest X-Ray 12/24/17 0429 Signed Impressions: Service Date/Time: December 05:01 - CONCLUSION: Normal examination. Bossman Ford Jr., MD Physical Exam HEENT: Normocephalic; atraumatic CHEST: Even/unlabored CARDIAC: Even/unlabored ABDOMEN: Obese, soft, mild epigastric tenderness, bowel sounds active SKIN: Normal; no rash; no jaundice. TERRAZZO JOURNEYMAN: Alert and oriented times three. (Mary Carmen Ruiz PLANT AND EQUIPMENT WORKER) Assessment and Plan Plan ASSESSMENT - Nausea, vomiting, epigastric pain History of gastric sleeve States pain is intermittent, worse with palpation, denies any relation to PO intake CT abdomen and pelvis was initially done W/O IV contrast which revealed questionable soft tissues mass within the LLQ, exam was repeat with IV contrast which was not consistent with this EGD (12/25) Normal duodenum. Gastritis in the antrum. Esophagitis distal esophagus. Hiatal hernia - Constipation- states chronic secondary to Fentanyl patch for tailbone pain- On Linzess outpatient No BM since admission States colonoscopy done last year, I do not see records of this in the chart. - Unintentional weight loss- states 18 pounds over the past couple weeks, thinks is the secondary to poor appetite since she has not been feeling well. Denies family history of colon cancer (12/26) Pt reports some nausea today, denies emesis. Mild epigastric pain, TTP. Her main complaint is cough, diagnosed with PE, supposed to be started on Heparin gtt today. Also complaining of tailbone pain, states this has been going on for awhile. PLAN - Protonix - Carafate - Reglan - Relistor x 1 - Bowel regimen- on Linzess at home - No previous records of colonoscopy, would benefit from a colonoscopy, this can be done outpatient given pt currently with PE and being started on Heparin - GI will sign off, please reconsult as needed - Have pt follow up with GI after discharge Pt has been seen and examined by myself and Dr. Rodriguez and this note is written on her behalf (Mary Carmen Ruiz) Mary Carmen Ruiz December 26, 2017 14:19 Aurora Rodriguez MD December 26, 2017 18:18
[2017-12-26] MEDS ORDERED: METHYLNALTREXONE BROMIDE 12 MG/0.6 ML VIAL SQ ONE (14:45)
--- NOTE | 2017-12-26 16:19 | HHI.PR ---
Subjective Remarks Patient offers no new complaints asking to be DC home Patient tearful when informed about PE and told that she can not go home today Objective Vitals Vital Signs Date Time Temp Pulse Resp B/P (MAP) Pulse Ox O2 Delivery O2 Flow Rate FiO2 12/26/17 12:00 98.6 79 18 138/84 (102) 100 12/26/17 08:00 98.3 66 18 121/70 (87) 98 12/26/17 04:00 98.3 69 19 111/66 (81) 97 12/26/17 03:50 56 12/26/17 00:00 98.2 50 18 115/54 (74) 97 12/25/17 23:53 45 12/25/17 20:00 98.5 59 18 134/73 (93) 100 12/25/17 19:50 57 I/O 12/25/17 12/25/17 12/25/17 12/26/17 12/26/17 12/26/17 07:00 15:00 23:00 07:00 15:00 23:00 Intake Total 500 ml 400 ml 1760 ml Balance 500 ml 400 ml 1760 ml Intake Oral 500 ml 360 ml IV Total 1400 ml Other 400 ml # Voids 1 # Bowel Movements 0 Result Diagram: 12/26/17 1309 12/24/17 0545 Other Results Laboratory Tests Test 12/24/17 05:04 12/24/17 05:12 12/24/17 05:45 12/24/17 16:27 White Blood Count 9.7 TH/MM3 Red Blood Count 4.97 MIL/MM3 Hemoglobin 12.9 GM/DL Hematocrit 39.6 % Mean Corpuscular Volume 79.8 FL Mean Corpuscular Hemoglobin 26.0 PG Mean Corpuscular Hemoglobin Concent 32.6 % Red Cell Distribution Width 14.5 % Platelet Count 193 TH/MM3 Mean Platelet Volume 10.4 FL Neutrophils (%) (Auto) 83.9 % Lymphocytes (%) (Auto) 12.9 % Monocytes (%) (Auto) 2.6 % Eosinophils (%) (Auto) 0.1 % Basophils (%) (Auto) 0.5 % Neutrophils # (Auto) 8.2 TH/MM3 Lymphocytes # (Auto) 1.3 TH/MM3 Monocytes # (Auto) 0.3 TH/MM3 Eosinophils # (Auto) 0.0 TH/MM3 Basophils # (Auto) 0.0 TH/MM3 CBC Comment DIFF FINAL Differential Comment Prothrombin Time 10.7 SEC Prothromb Time International Ratio 1.1 RATIO Activated Partial Thromboplast Time 23.0 SEC Urine Color YELLOW Urine Turbidity HAZY Urine pH 7.0 Urine Specific [place] 1.028 Urine Protein 30 mg/dL Urine Glucose (UA) NEG mg/dL Urine Ketones TRACE mg/dL Urine Occult Blood NEG Urine Nitrite NEG Urine Bilirubin NEG Urine Urobilinogen 2.0 MG/DL Urine Leukocyte Esterase TRACE Urine RBC 4 /hpf Urine WBC 4 /hpf Urine Squamous Epithelial Cells 21 /hpf Urine Hyaline Casts 3 /lpf Urine Mucus MANY /lpf Microscopic Urinalysis Comment CULT NOT INDICATED Blood Urea Nitrogen 13 MG/DL Creatinine 0.79 MG/DL Random Glucose 120 MG/DL Total Protein 7.9 GM/DL Albumin 4.0 GM/DL Calcium Level 8.5 MG/DL Alkaline Phosphatase 52 U/L Aspartate Amino Transf (AST/SGOT) 15 U/L Alanine Aminotransferase (ALT/SGPT) 18 U/L Total Bilirubin 0.4 MG/DL Sodium Level 139 MEQ/L Potassium Level 3.9 MEQ/L Chloride Level 108 MEQ/L Carbon Dioxide Level 25.3 MEQ/L Anion Gap 6 MEQ/L Estimat Glomerular Filtration Rate 79 ML/MIN Troponin I LESS THAN 0.02 NG/ML LESS THAN 0.02 NG/ML Lipase 157 U/L D-Dimer Quantitative (PE/DVT) 0.99 MG/L FEU Test 12/24/17 22:19 12/26/17 08:00 12/26/17 13:09 Troponin I LESS THAN 0.02 NG/ML White Blood Count 10.7 TH/MM3 10.2 TH/MM3 Red Blood Count 4.26 MIL/MM3 4.53 MIL/MM3 Hemoglobin 11.3 GM/DL 11.7 GM/DL Hematocrit 34.4 % 36.5 % Mean Corpuscular Volume 80.7 FL 80.6 FL Mean Corpuscular Hemoglobin 26.5 PG 25.9 PG Mean Corpuscular Hemoglobin Concent 32.9 % 32.1 % Red Cell Distribution Width 14.2 % 14.7 % Platelet Count 160 TH/MM3 159 TH/MM3 Mean Platelet Volume 10.4 FL 10.3 FL Neutrophils (%) (Auto) 62.1 % Lymphocytes (%) (Auto) 29.7 % Monocytes (%) (Auto) 6.9 % Eosinophils (%) (Auto) 0.7 % Basophils (%) (Auto) 0.6 % Neutrophils # (Auto) 6.6 TH/MM3 Lymphocytes # (Auto) 3.2 TH/MM3 Monocytes # (Auto) 0.7 TH/MM3 Eosinophils # (Auto) 0.1 TH/MM3 Basophils # (Auto) 0.1 TH/MM3 CBC Comment DIFF FINAL Differential Comment Prothrombin Time 10.8 SEC Prothromb Time International Ratio 1.1 RATIO Activated Partial Thromboplast Time 23.4 SEC Imaging Last Impressions CT Angiography 12/25/17 0000 Signed Impressions: Service Date/Time: Monday, December 25, 2017 09:54 - CONCLUSION: There are pulmonary emboli seen within the right proximal interlobar and lower lobar branches, appearance suggests at least subacute to chronic component however there may be acute thrombus in the distal branches. There is a noncalcified nodule in the right lower lobe. Pierre Haider MD Abdomen/Pelvis CT 12/25/17 0000 Signed Impressions: Service Date/Time: Monday, December 25, 2017 09:54 - CONCLUSION: No acute disease. Pierre Haider MD Chest X-Ray 12/24/17 0429 Signed Impressions: Service Date/Time: December 05:01 - CONCLUSION: Normal examination. Bossman Ford Jr., MD Objective Remarks GENERAL: This is a well-nourished, well-developed patient, in no apparent distress. CARDIOVASCULAR: Regular rate and rhythm RESPIRATORY: Clear to auscultation. Breath sounds equal bilaterally. GASTROINTESTINAL: Abdomen soft, non-tender, nondistended. Normal active bowel sounds MUSCULOSKELETAL: Extremities without clubbing, cyanosis, or edema. NEURO: Alert & Oriented x4 to person, place, time, situation. Moves all ext x4 A/P Problem List: (1) Pulmonary embolism ICD Code: I26.99 - Other pulmonary embolism without acute cor pulmonale (2) Intractable abdominal pain ICD Code: R10.9 - Unspecified abdominal pain Status: Acute (3) Hx of deep venous thrombosis ICD Code: Z86.718 - Personal history of other venous thrombosis and embolism Status: Acute Assessment and Plan 42-year-old female admitted with epigastric pain and bilious emesis Abdominal Pain Gastritis Status post EGD (12/25) Normal duodenum. Gastritis in the antrum. Esophagitis distal esophagus. Hiatal hernia continue PPI Monitor for PO intake tolerance Chest Pain No evidence of cardiac etiology Etiology is likely gastric HTN Follow BP Continue Lisinopril and HCTZ Chronic Pain Fentanyl Patch continued Hx of DVT Xarelto DC'd PE CT angiogram There are pulmonary emboli seen within the right proximal interlobar and lower lobar branches,appearance suggests at least subacute to chronic component however there may be acute thrombus in the distal branches. There is a noncalcified nodule in the right lower lobe. Start Heparin drip consult hematology, await further recommendations Echocardiogram ordered Supervising physician Naina Rogel December 26, 2017 16:19
[2017-12-26] MEDS: GEMFIBROZIL 600 MG TAB PO SCH (16:21)
[2017-12-26] MEDS: SUCRALFATE 1 GM TAB PO SCH ×2 (16:21→20:13)
[2017-12-26] MEDS: ENOXAPARIN SODIUM 100 MG/ML SYRINGE SQ SCH (16:22)
--- NOTE | 2017-12-26 16:47 | MB ---
cc: Anupam Casiano MD, Boon Y MD DATE: 12/26/2017 ATTENDING PHYSICIAN: Dr. Odonnell REASON FOR CONSULTATION: Hematology is consulted to render an opinion regarding a patient with recurrent blood clot while on Xarelto. HISTORY OF PRESENT ILLNESS: The patient is a very pleasant 42-year-old female who presented to the hospital with complaint of nausea and vomiting for a day. She said that she had chest pain associated with the vomiting. A CT angiogram was done, which showed a right lung pulmonary embolism, could be chronic and subacute. She has had lower extremity edema on and off lately. Her left lower extremity is more swollen. She has chronic leg pain due to neuropathy which is about the same. She had a total of 8 deep venous thromboses in bilateral legs in the past. The first episode was at 18 years old. The last episode was in 2009. She has been on Coumadin and doing well until 06/2017 when she was switched to Xarelto. She stated that she has been taking daily Xarelto and has not missed dose. She has been more inactive, because she hurt her tailbone. This has been going on for several years. She has lost some weight recently. She denies any fever or chills. Denies any significant shortness of breath at this time. Denies any nausea, dysuria or hematuria. PAST MEDICAL HISTORY: 1. Multiple deep vein thromboses. 2. Depression and anxiety. 3. Hypertension. 4. Obesity. 5. Chronic pain. 6. Peripheral neuropathy. 7. Gastritis. 8. Peripheral vascular disease. 9. Migraine headache. 10. Anemia. 11. Hyperlipidemia. PAST SURGICAL HISTORY: EGD, gastric sleeve bariatric surgery in 2013, partial hysterectomy, x2, D and C. FAMILY HISTORY: Father had DVT. SOCIAL HISTORY: Denied tobacco or alcohol use. ALLERGIES: MULTIPLE ALLERGIES DOCUMENTED ON HER CHART THAT WAS REVIEWED. MEDICATIONS: 1. Heparin. 2. Doxepin. 3. Pravachol. 4. Carafate 5. Lopid. 6. Fentanyl patch 7. Trintellix 8. Lisinopril 9. Hydrochlorothiazide. 10. Valium. REVIEW OF SYSTEMS: CONSTITUTIONAL: As above. EYES: Negative. ENT: Negative. CARDIOVASCULAR: As above. RESPIRATORY: As above. GASTROINTESTINAL: As above. GENITOURINARY: Denies any dysuria or hematuria. MUSCULOSKELETAL: As above. ENDOCRINE: Negative HEMATOLOGIC: As above. DERMATOLOGIC: Negative. PSYCHIATRIC: Negative. NEUROLOGIC: Negative. PHYSICAL EXAMINATION: VITAL SIGNS: Temperature 98.6, blood pressure 138/84, O2 saturation 100%. GENERAL: She is alert and oriented x3, in no acute distress. HEENT: Atraumatic, normocephalic. Pupils equal, round, reactive to light. Extraocular muscles are intact. No scleral icterus. Oropharynx dry mucosa. No lesion, no thrush, no mucositis. NECK: No thyromegaly. No palpable mass. LYMPHATIC: No palpable cervical, clavicular, axillary or inguinal lymph node. CARDIOVASCULAR: Regular S1, S2. No murmur. LUNGS: Clear to auscultation anteriorly. ABDOMEN: Soft, nontender. I could not palpate liver or spleen. EXTREMITIES: Left lower extremity looks a little bigger than the right lower extremity. She has some tenderness in the lower extremities. No erythema noted. LABORATORY DATA: CBC within normal limits. Creatinine 0.79. D-dimer 0.99. ASSESSMENT: 1. Thrombophilia with multiple lower extremity deep venous thromboses. She stated that she never had a pulmonary embolism in the past. The patient had her first lower extremity deep vein thrombosis when she was 18 years old. Since then, she had a total of 8 different episodes of thromboembolic event. Her last blood clot was in 2009. She was on Coumadin for a long time and tolerated it well. She stated that her last dose was 10 mg daily and the INR were quite stable. She was switched to Xarelto around 06/2017. She stated she has been taking it daily and has not missed a dose. She was complaining of chest pain associated with vomiting. A CT angiogram showed pulmonary emboli within right proximal interlobar and lower lobe branches, suggests at least subacute to chronic component. However, there may be an acute thrombus in the distal branches. She is less active since she hurt her back a few years ago. She stated that she has chronic lower extremity edema, but lately her left lower extremity seems to be bigger. She has tolerated heparin and Lovenox well in the past. She used to give herself Lovenox injection during her . Given that she has developed clots while on Xarelto, she will need a different anticoagulation agent. She had tolerated Coumadin well and I think that will be the best choice. The patient has an 8-year-old son who is autistic and she really needs to go home to take care of him. She wants to expedite her discharge. I am going to switch her to Lovenox and she could start bridging to coumadin tomorrow. If she is stable tomorrow, she could be discharged home with Lovenox. She can follow up with Dr. Reyes as an outpatient. She had many questions today which were answered. 2. Nausea and vomiting which is chronic. She has had nausea for about a year. She had an upper endoscopy which showed esophagitis and gastritis. She also has a hiatal hernia. 3. Chronic pain. 4. Peripheral neuropathy. 5. Peripheral vascular disease. 6. History of iron deficiency anemia, hemoglobin is low normal at this time. RECOMMENDATIONS: 1. Start her on Lovenox 1 mg per kg twice a day. 2. She could start bridging to coumadin tomorrow. Her last dose of coumadin was 10 mg daily. 3. She could be discharged tomorrow if stable. Thank you, Dr. Odonnell, for asking me to see this patient. MD DONTE Bolton/ , 03:35 PM , 04:46 PM MTDMichele
[2017-12-26] MEDS ORDERED: PRAVASTATIN SOD 40 MG TAB PO SCH (21:00)
[2017-12-26] MEDS ORDERED: DOXEPIN HCL 50 MG CAP PO SCH (21:00)
[2017-12-27 00:01] VITALS: BP 128/67; PULSE 61; RESP 18; TEMP 98.3; O2SAT 97
[2017-12-27 03:20] VITALS: BP 135/69; PULSE 66; RESP 18; TEMP 98.4; O2SAT 95
[2017-12-27 03:39] VITALS: PULSE 66
[2017-12-27] MEDS: ENOXAPARIN SODIUM 100 MG/ML SYRINGE SQ SCH (05:55)
[2017-12-27] MEDS: METOCLOPRAMIDE HCL 10 MG/2 ML VIAL IV PUSH SCH (05:56)
[2017-12-27] MEDS: GEMFIBROZIL 600 MG TAB PO SCH (06:17)
[2017-12-27] MEDS ORDERED: ENOX100P SQ ×2 (07:45→07:48)
[2017-12-27] MEDS ORDERED: COUM10TA PO (07:45)
[2017-12-27] MEDS ORDERED: PROT40TA PO (07:45)
--- NOTE | 2017-12-27 07:48 | HHI.FF ---
Face to Face Verification Diagnosis: (1) Morbid obesity (2) Intractable abdominal pain (3) Pulmonary embolism Home Health Nursing Order: Medical education Signs/symptoms of disease process Medication education-adverse effect Instructions: Lovenox bridging to Coumadin daily INR checks with results to Dr. Reyes to manage Coumadin dosage and monitoring I have seen patient Ashlie Meehan on 12/27/17. My clinical findings support the need for the requested home health care services because: Med compliance is questionable Limited ability to care for self I certify that my clinical findings support that this patient is homebound because: Unsteady gait/balance Need for psychosocial assistance Naina Samuels December 27, 2017 07:47
[2017-12-27] MEDS ORDERED: CARA1TAB6 PO (07:50)
[2017-12-27 08:00] VITALS: BP 116/76; PULSE 60; PULSE 71; RESP 18; TEMP 98.1; O2SAT 99
--- NOTE | 2017-12-27 08:33 | HHI.DCPOC ---
Discharge Care Plan Diagnosis: (1) Intractable abdominal pain (2) Hx of deep venous thrombosis (3) Pulmonary embolism Goals to Promote Your Health * To prevent worsening of your condition and complications * To maintain your health at the optimal level Directions to Meet Your Goals Take your medications as prescribed Follow your dietary instruction Follow activity as directed Keep your appointments as scheduled Take your immunizations and boosters as scheduled If your symptoms worsen call your PCP, if no PCP go to Urgent Care Center or Emergency Room Smoking is Dangerous to Your Health. Avoid second hand smoke Call the 24-hour hour crisis hotline for domestic abuse at Naina Samuels December 27, 2017 08:33
--- NOTE | 2017-12-27 08:39 | HHI.DS ---
Discharge Summary Admission Date December 24, 2017 at 06:37 Discharge Date: December 27, 2017 Admitting Diagnosis Intractable nausea and vomiting Abdominal mass, chest pain (1) Pulmonary embolism ICD Code: I26.99 - Other pulmonary embolism without acute cor pulmonale (2) Intractable abdominal pain ICD Code: R10.9 - Unspecified abdominal pain Status: Acute (3) Hx of deep venous thrombosis ICD Code: Z86.718 - Personal history of other venous thrombosis and embolism Status: Acute Procedures EGD with Dr. Rodriguez (12/25) Normal duodenum. Gastritis in the antrum. Esophagitis distal esophagus. Hiatal hernia Brief History - From Admission 42-year-old female with a previous history of anxiety, depression, hypertension , chronic pain, peripheral neuropathy presents the emergency room with 24 hour history of intense intractable nausea and bilious and brown emesis that happened this morning about 1 AM. She states that she has had symptoms of nausea for greater than 1 year however the intensity has worsened since 4 months ago in August. She has had EGD done previously in March 2016 which revealed gastritis and a history of gastric bariatric sleeve. She reports that secondary to symptoms of intense nausea and brown in bowel vomiting she came to the emergency room for further evaluation. In addition she developed some burning substernal pain which radiating to both upper chest area this a.m. which is resolved at this time. She denies any associated shortness of breath with this symptom. She reports no history of abdominal mass. She also reports no recent history of weight loss. She did have a bowel movement last night which show no bloody stools or black stools. She usually struggles with constipation and denies any recent diarrhea. She denies symptoms of dysuria frequency urgency. She denies any recent travels and has not had any unusual food intake for the past week. She also reports a epigastric burning pain radiating up to her substernal area. CBC/BMP: 12/26/17 1309 12/24/17 0545 Significant Findings Laboratory Tests Test 12/24/17 16:27 12/24/17 22:19 12/26/17 08:00 12/26/17 13:09 D-Dimer Quantitative (PE/DVT) 0.99 MG/L FEU (0.00-0.50) Troponin I LESS THAN 0.02 NG/ML LESS THAN 0.02 NG/ML Hemoglobin 11.3 GM/DL (11.6-15.3) Hematocrit 34.4 % (35.0-46.0) Mean Corpuscular Hemoglobin 26.5 PG (27.0-34.0) 25.9 PG (27.0-34.0) Activated Partial Thromboplast Time 23.4 SEC (24.3-30.1) Imaging Last Impressions CT Angiography 12/25/17 0000 Signed Impressions: Service Date/Time: Monday, December 25, 2017 09:54 - CONCLUSION: There are pulmonary emboli seen within the right proximal interlobar and lower lobar branches, appearance suggests at least subacute to chronic component however there may be acute thrombus in the distal branches. There is a noncalcified nodule in the right lower lobe. Pierre Haider MD Abdomen/Pelvis CT 12/25/17 0000 Signed Impressions: Service Date/Time: Monday, December 25, 2017 09:54 - CONCLUSION: No acute disease. Pierre Haider MD Chest X-Ray 12/24/17 0429 Signed Impressions: Service Date/Time: December 05:01 - CONCLUSION: Normal examination. Bossman Ford Jr., MD PE at Discharge GENERAL: This is a well-nourished, well-developed patient, in no apparent distress. CARDIOVASCULAR: Regular rate and rhythm RESPIRATORY: Clear to auscultation. Breath sounds equal bilaterally. GASTROINTESTINAL: Abdomen soft, non-tender, nondistended. Normal active bowel sounds MUSCULOSKELETAL: Extremities without clubbing, cyanosis, or edema. NEURO: Alert & Oriented x4 to person, place, time, situation. Moves all ext x4 Hospital Course 42-year-old female admitted with epigastric pain and bilious emesis Abdominal Pain Gastritis Consult GI seen by Dr. Rodriguez Status post EGD (12/25) Normal duodenum. Gastritis in the antrum. Esophagitis distal esophagus. Hiatal hernia continue PPI Monitor for PO intake tolerance Chest Pain No evidence of cardiac etiology Etiology is likely gastric HTN Follow BP Continue Lisinopril and HCTZ Chronic Pain Fentanyl Patch continued Hx of DVT Xarelto DC'd PE CT angiogram There are pulmonary emboli seen within the right proximal interlobar and lower lobar branches,appearance suggests at least subacute to chronic component however there may be acute thrombus in the distal branches. There is a noncalcified nodule in the right lower lobe. Initially started on Heparin drip consult hematology, patient seen by Dr. Casiano appreciate input. Hematology recommended Lovenox SQ BID bridge to Coumadin Echocardiogram completed results not yet available. Patient does not want to wait for results. Patient appears stable VSS. Will DC patient. Patient to follow up with PCP and Dr. Reyes Discussed case with Lakshmi VANESSA hematology they will monitor INR request patient be DC with Coumadin 6 mg daily and they will adjust DC home with [facility] for daily INR and assistance with Lovenox injections. Patient has given herself Lovenox in the past and feels comfortable with injections Supervising physician Dr. Pena Pt Condition on Discharge: Stable Discharge Disposition: Disch w/ Home Health Serv Discharge Time: > 30 minutes Discharge Instructions DIET: Follow Instructions for: Heart Healthy Diet Activities you can perform: Regular-No Restrictions Follow up Referrals: Gastroenterology - 2 Weeks with Aurora Rodriguez MD Oncology/Hematology - 1 Week with Lea Reyes MD PCP Follow-up - 1 Week with Anya VANESSA New Medications: Pantoprazole (Protonix) 40 Mg Tab 40 MG PO BID for Reflux for 30 Days, #60 TAB 0 Refills Warfarin (Coumadin) 6 Mg Tab 6 MG PO DAILY for Prevent Blood Clot, #30 TAB 0 Refills Enoxaparin Inj (Lovenox Inj) 100 Mg/Ml Syr 100 MG SQ Q12H for blood clot for 7 Days, INJECTION 0 Refills DC lovenox once INR equal or greater than 2.0 Sucralfate (Carafate) 1 Gram Tab 1 GM PO ACHS for stomach for 14 Days, TAB 0 Refills Continued Medications: Diazepam (Diazepam) 10 Mg Tab 10 MG PO TID PRN for anxiety, TAB 0 Refills Doxepin (Doxepin) 150 Mg Cap 150 MG PO HS, #30 CAP 0 Refills Fentanyl Patch 72 HR (Fentanyl Patch 72 HR) 25 Mcg/Hr Patch 25 MCG T-DERMAL Q72H for Pain Management, #10 PATCH 0 Refills Gemfibrozil (Gemfibrozil) 600 Mg Tab 600 MG PO BIDAC, #60 TAB 0 Refills Take 30 minutes prior to breakfast and dinner. Hydrocodone-Acetaminophen (Hydrocodone-Acetaminophen) 10-325 mg Tab 1 TAB PO Q6H PRN for PAIN, TAB 0 Refills Lisinopril-Hctz (Lisinopril-Hctz) 20-25 Mg Tab 1 TAB PO DAILY for Blood Pressure Management, #30 TAB 0 Refills Lovastatin (Lovastatin) 40 Mg Tab 40 MG PO HS for Cholesterol Management, #30 TAB 0 Refills Vortioxetine (Trintellix) 20 Mg Tab 20 MG PO DAILY for Control Depression, #30 TAB 0 Refills Zolpidem (Ambien) 10 Mg Tab 10 MG PO HS PRN for INSOMNIA, TAB 0 Refills Discontinued Medications: Rivaroxaban (Xarelto) 15 Mg Tab 15 MG PO DAILY for Blood Clot Prevention, TAB 0 Refills Naina Samuels December 27, 2017 08:39
[2017-12-27] MEDS: LISINOPRIL 20 MG TAB PO SCH (08:40)
[2017-12-27] MEDS: HYDROCHLOROTHIAZIDE 25 MG TAB PO SCH (08:40)
[2017-12-27] MEDS: SUCRALFATE 1 GM TAB PO SCH (08:40)
--- NOTE | 2017-12-27 09:23 | RADRPT ---
EXAM DATE/TIME: 12/27/2017 08:22 [place] COMPARISON: No previous studies available for comparison. EXTERNAL COMPARISON : [facility], US BILATERAL LEG VENOUS DOPPLER, October 10, 2016 INDICATIONS : Bilateral leg swelling. MEDICAL HISTORY : Peripheral vascular disease. Deep venous thrombosis. Chest pain. Anticoagulant therapy, Warfarin. De pression. Axniety. SURGICAL HISTORY : section.Hysterectomy. Gastric sleeve. D&C. ENCOUNTER: Initial ACUITY: 1 day PAIN SCORE: 1/10 LOCATION: Bilateral leg. TECHNIQUE: Venous ultrasound of the left and right leg was performed from the inguinal ligament to the proximal calf. Real-time, color Doppler and spectral tracing, compression and augmentation techniques were us ed. FINDINGS: RIGHT LEG: There is normal compressibility of the deep venous system from the inguinal region to the proximal ca lf. No echogenic clot is seen in the lumen of the common femoral, femoral, popliteal, and posterior tibial veins. There is a normal response of the venous system to proximal and distal augmentation an d respiration. LEFT LEG: Abnormal. The distal superficial femoral vein and popliteal vein is noncompressible. There is echog enic thrombus within the posterior tibial vein with absent flow. There are some filling defects in t he popliteal vein with some flow of about the defects. There is intact flow in the superficial femor al vein with augmentation. CONCLUSION: Positive for deep venous thrombosis left calf and popliteal region. Bossman Zuleta MD on December 27, 2017 at 9:19 Board Certified Radiologist. This report was verified electronically.
[2017-12-27] MEDS ORDERED: COUM6TAB PO (09:48)
--- NOTE | 2017-12-27 10:10 | PD.ONC.PN ---
Subjective Subjective Remarks Afebrile Patient reports she is overall feeling great Anxious to go home Still with mild cough however no shortness of breath Objective Data Date Time Temp Pulse Resp B/P (MAP) Pulse Ox O2 Delivery O2 Flow Rate FiO2 12/27/17 08:00 98.1 71 18 116/76 (89) 99 12/27/17 03:39 66 12/27/17 03:20 98.4 66 18 135/69 (91) 95 12/27/17 00:01 98.3 61 18 128/67 (87) 97 12/26/17 23:54 54 12/26/17 22:25 Room Air 12/26/17 20:00 52 12/26/17 19:34 98.2 58 18 132/60 (84) 97 12/26/17 19:21 18 12/26/17 16:00 98.2 67 18 110/66 (81) 100 12/26/17 12:00 98.6 79 18 138/84 (102) 100 12/27/17 12/27/17 12/27/17 07:00 15:00 23:00 Intake Total 100 ml Balance 100 ml Result Diagram: 12/26/17 1309 12/24/17 0545 Laboratory Results Laboratory Tests Test 12/26/17 13:09 White Blood Count 10.2 TH/MM3 Red Blood Count 4.53 MIL/MM3 Hemoglobin 11.7 GM/DL Hematocrit 36.5 % Mean Corpuscular Volume 80.6 FL Mean Corpuscular Hemoglobin 25.9 PG Mean Corpuscular Hemoglobin Concent 32.1 % Red Cell Distribution Width 14.7 % Platelet Count 159 TH/MM3 Mean Platelet Volume 10.3 FL Prothrombin Time 10.8 SEC Prothromb Time International Ratio 1.1 RATIO Activated Partial Thromboplast Time 23.4 SEC Imaging Studies Last 24 hours Impressions Lower Extremity Ultrasound 12/27/17 0000 Signed Impressions: Service Date/Time: Wednesday, December 27, 2017 08:22 - CONCLUSION: Positive for deep venous thrombosis left calf and popliteal region. Bossman Zuleta MD Administered Medications Medications (Trade) Dose Ordered Sig/Nicci Route PRN Reason Start Time Stop Time Status Last Admin Dose Admin Morphine Sulfate (Morphine Inj) 2 mg Q4H PRN IV PUSH PAIN 12/24/17 06:15 12/24/17 17:21 Metoclopramide HCl (Reglan Inj) 10 mg Q8H IV PUSH 12/24/17 13:00 12/27/17 05:56 Acetaminophen/ Hydrocodone Bitart (Caney 7.5-325 Mg) 1 tab Q4H PRN PO PAIN SCALE 6 TO 10 12/24/17 12:00 12/26/17 18:23 Pantoprazole Sodium (Protonix Inj) 40 mg Q24H IV PUSH 12/24/17 12:00 12/26/17 12:32 Hydromorphone HCl (Dilaudid Pf Inj) 1 mg Q3H PRN IV PAIN 6-10,IF UNABLE TO TAKE PO 12/24/17 22:15 12/25/17 18:24 Doxepin HCl (SINEquan) 150 mg HS PO 12/26/17 21:00 12/26/17 20:13 Fentanyl (Duragesic 25 Mcg Patch.72 Hr) 1 patch Q72H T-DERMAL 12/26/17 09:00 12/26/17 09:00 Gemfibrozil (Lopid) 600 mg BIDAC PO 12/26/17 16:00 12/27/17 06:17 Pravastatin Sodium (Pravachol) 40 mg HS PO 12/26/17 21:00 12/26/17 20:13 Lisinopril (Prinivil) 20 mg DAILY PO 12/26/17 09:00 12/27/17 08:40 Hydrochlorothiazide (Hydrodiuril) 25 mg DAILY PO 12/26/17 09:00 12/27/17 08:40 Sucralfate (Carafate) 1 gm ACHS PO 12/26/17 17:00 12/27/17 08:40 Enoxaparin Sodium (Lovenox Inj) 100 mg Q12H SQ 12/26/17 17:00 12/27/17 05:55 Objective Remarks GENERAL: Overweight older female walking around room in no obvious distress SKIN: Warm and dry. HEAD: Normocephalic. EYES: No scleral icterus. No injection or drainage. NECK: Supple, trachea midline. No JVD or lymphadenopathy. CARDIOVASCULAR: Regular rate and rhythm without murmurs. RESPIRATORY: Breath sounds equal bilaterally. No accessory muscle use. GASTROINTESTINAL: Abdomen soft, non-tender, nondistended. EXTREMITIES: No cyanosis, or edema. MUSCULOSKELETAL: Adequate muscle tone. NEUROLOGICAL: No obvious focal deficit. Awake, alert, and oriented x3. 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 Start Coumadin at 7 mg daily 2. Attending to set up home health to check daily INR 3. Follow-up in clinic with [facility] on Thursday 4. Facesheet faxed to new patient referrals Attending Statement The exam, history, and the medical decision-making described in the above note were completed with the assistance of the mid-level provider. I reviewed and agree with the findings presented. I attest that I had a [id number] encounter with the patient on the same day, and personally performed and documented my assessment and findings in the medical record. Feeling better. Anxious to go home. No CP/SOB. US showed LLE DVT. Tolerating lovenox. Continue bridging to coumadin with goal INR 2-3. F/u with . Lakshmi Morton December 27, 2017 10:10 Anupam Casiano MD December 27, 2017 10:22
[2017-12-29] MEDS ORDERED: REMOVE OLD PATCH T-DERMAL SCH (09:00)
== END 2017-12-27 10:48 | disposition home health service (06) | DRG 391 ==
LOC: NEPC 04:14 → NEDA 06:37 → NEPHCDU 08:05 → N06A 12-25 19:41 → UNDODISIN 12-26 14:46
PROVIDERS: ADMIT Hospitalist; ATTEND Hospitalist
PROC: 0DB78ZX Excision of Stomach, Pylorus, Via Natural or Artificial Opening Endoscopic, Diagnostic (ICD-10-PCS; 2017-12-25)
PROC: 0DB38ZX Excision of Lower Esophagus, Via Natural or Artificial Opening Endoscopic, Diagnostic (ICD-10-PCS; 2017-12-25)
PROC: 0DB98ZX Excision of Duodenum, Via Natural or Artificial Opening Endoscopic, Diagnostic (ICD-10-PCS; principal; 2017-12-25 15:19)
DX: K29.70 Gastritis, unspecified, without bleeding (principal); I26.99 Other pulmonary embolism without acute cor pulmonale; D68.59 Other primary thrombophilia; Z68.41 Body mass index [BMI] 40.0-44.9, adult; G62.9 Polyneuropathy, unspecified; I10 Essential (primary) hypertension; R19.04 Left lower quadrant abdominal swelling, mass and lump; D50.9 Iron deficiency anemia, unspecified; E78.5 Hyperlipidemia, unspecified; I73.9 Peripheral vascular disease, unspecified; R63.4 Abnormal weight loss; R60.0 Localized edema; K20.9 Esophagitis, unspecified; K44.9 Diaphragmatic hernia without obstruction or gangrene; K59.00 Constipation, unspecified; R91.1 Solitary pulmonary nodule; F32.9 Major depressive disorder, single episode, unspecified; F41.9 Anxiety disorder, unspecified; Z79.01 Long term (current) use of anticoagulants; Z79.891 Long term (current) use of opiate analgesic; Z80.42 Family history of malignant neoplasm of prostate; Z82.49 Family history of ischemic heart disease and other diseases of the circulatory system; Z86.718 Personal history of other venous thrombosis and embolism; Z88.0 Allergy status to penicillin; Z91.041 Radiographic dye allergy status; Z98.84 Bariatric surgery status
CPT/HCPCS: 71045; 71275; 74176; 74177; 80053; 81001; 83690; 84484; 85025; 85027; 85379; 85610; 85730; 88305; 88312; 93005; 93970; 96374; 96375; 96376; C9113; J1170; J1644; J1650; J2212; J2270; J2765; J3010; J7030; J7512; Q0163; Q9963; Q9967

== ENCOUNTER 2018-01-03 01:48 | Emergency (ER) | payer MEDICARE, MEDICAID ==
[~2018-01-03] VITALS: Ht 162.6 cm; Wt 105.0 kg
[~2018-01-03 01:48] MED LIST changes: +AMBI10TA PO; +CARA1TAB6 PO; +COUM6TAB PO; +DIAZ10TA PO; -DIAZ10TA2 PO; -DICY1TAB26 PO; +DOXE150C2 PO; +ENOX100P SQ; +FENT25DI T-DERMAL; +GEMF600T PO; +HYDR-3583 PO; -LISI-587 PO; +LISI20TA3 PO; -NEUR800T PO; -PERC10TA27 PO; -SUCR1S PO; -WARF3TAB PO
[2018-01-03 01:50] VITALS: RESP 18; O2SAT 98
[2018-01-03] MEDS ORDERED: GABA800T PO (01:57)
[2018-01-03 01:58] VITALS: BP 140/101; PULSE 87; RESP 18; TEMP 98.1; O2SAT 96
--- NOTE | 2018-01-03 02:02 | PD ---
HPI Chief Complaint: Chest Pain Time Seen by Provider: 01:58 Travel History International Travel<30 days: No Contact w/Intl Traveler<30days: No Traveled to known affect area: No History of Present Illness HPI Patient comes in complaining of midsternal/substernal chest pain, sharp, woke her up from sleep and is not going away with her hydrocodone. patient rates it 7 /10, nonradiating, worsened by deep inspiration, without any alleviating factors , constant in nature. patient denies assoc factors such as fever, cough, sore throat, runny nose, abd pain/back pain/, n/v/d. patient stated that she has had similar pain in past and diagnosed with blood clot to lung, but has been compliant with her blood thinning medicine Patient states that she has allergies to contrast to penicillin Past medical history significant for recently diagnosed with PE currently on Coumadin, she has had previous history of DVTs, hypertension with , a gastric sleeve in 2012, partial hysterectomy, D&C, section 2, bipolar history, PFS Past Medical History Hx Anticoagulant Therapy: Yes (WARFARIN R/T DVT HX ) Arthritis: No Asthma: No Anxiety: Yes Depression: Yes Heart Rhythm Problems: No Cancer: No Cardiovascular Problems: No High Cholesterol: No Chest Pain: Yes Congestive Heart Failure: No COPD: No Deep Vein Thrombosis: Yes (X 2 RIGHT 1ST THEN LEFT (2 separate occurrences)) Endocrine: No Gastrointestinal Disorders: Yes (RECENT NAUSEA, VOMITING, ABD PAIN, DIARRHEA) GERD: No Genitourinary: No Hiatal Hernia: No Immune Disorder: No Medical other: Yes (HX OF BLOOD CLOTS, DEGENERATIVE DISC DISEASE) Musculoskeletal: No Neurologic: No Psychiatric: Yes Reproductive: No Respiratory: Yes (PE) Sleep Apnea: No Ulcer: No ?: Not : 4 Para: 2 Miscarriage: 1 : 1 Past Surgical History Section: Yes Gynecologic Surgery: Yes (CESEAREAN SX X 2, D & C, PARTIAL HYSTERECTOMY) Hysterectomy: Yes (PARTIAL ) Pacemaker: No Other Surgery: Yes Social History Alcohol Use: No Tobacco Use: No Substance Use: No Allergies-Medications (Allergen,Severity, Reaction): Coded Allergies: diatrizoate meglumine (Unverified Allergy, Severe, RESPIRATORY DISTRESS, ) IV IODINE gadobenic acid (Unverified Allergy, Severe, RESPIRATORY DISTRESS, 01/03/18) IV IODINE gadodiamide (Unverified Allergy, Severe, RESPIRATORY DISTRESS, 01/03/18) IV IODINE gadoteridol (Unverified Allergy, Severe, RESPIRATORY DISTRESS, 01/03/18) IV IODINE iodixanol (Unverified Allergy, Severe, RESPIRATORY DISTRESS, 01/03/18) IV IODINE iohexol (Unverified Allergy, Severe, RESPIRATORY DISTRESS, 01/03/18) IV IODINE penicillin G (Unverified Allergy, Severe, Hives, 01/03/18) Reported Meds & Prescriptions Reported Meds & Active Scripts Active Zofran Odt (Ondansetron Odt) 4 Mg Tab 4 Mg SL Q6HR PRN Coumadin (Warfarin) 6 Mg Tab 6 Mg PO DAILY Carafate (Sucralfate) 1 Gram Tab 1 Gm PO ACHS 14 Days Lovenox Inj (Enoxaparin Sodium) 100 Mg/Ml Syr 100 Mg SQ Q12H 7 Days DC lovenox once INR equal or greater than 2.0 Protonix (Pantoprazole Sodium) 40 Mg Tab 40 Mg PO BID 30 Days Reported Gabapentin 800 Mg Tab 800 Mg PO TID Lisinopril-Hctz 20-25 Mg Tab 1 Tab PO DAILY Gemfibrozil 600 Mg Tab 600 Mg PO BIDAC Take 30 minutes prior to breakfast and dinner. Trintellix (Vortioxetine) 20 Mg Tab 20 Mg PO DAILY Diazepam 10 Mg Tab 10 Mg PO TID PRN Doxepin (Doxepin HCl) 150 Mg Cap 150 Mg PO HS Ambien (Zolpidem Tartrate) 10 Mg Tab 10 Mg PO HS PRN Lovastatin 40 Mg Tab 40 Mg PO HS Hydrocodone-Acetaminophen 10-325 mg Tab 1 Tab PO Q6H PRN Fentanyl Patch 72 HR (Fentanyl) 25 Mcg/Hr Patch 25 Mcg T-DERMAL Q72H Review of Systems General / Constitutional: No: Fever Eyes: No: Visual changes HENT: No: Headaches Cardiovascular: Positive: Chest Pain or Discomfort Respiratory: No: Shortness of Breath Gastrointestinal: No: Abdominal Pain Genitourinary: No: Dysuria Musculoskeletal: No: Pain Skin: No Rash Neurologic: No: Weakness Psychiatric: No: Depression Endocrine: No: Polydipsia Hematologic/Lymphatic: No: Easy Bruising Physical Exam Narrative GENERAL: SKIN: Warm and dry. HEAD: Atraumatic. Normocephalic. EYES: Pupils equal and round. No scleral icterus. No injection or drainage. ENT: No nasal bleeding or discharge. Mucous membranes pink and moist. NECK: Trachea midline. No JVD. CARDIOVASCULAR: Regular rate and rhythm. RESPIRATORY: No accessory muscle use. Clear to auscultation. Breath sounds equal bilaterally. GASTROINTESTINAL: Abdomen soft, non-tender, nondistended. MUSCULOSKELETAL: Extremities without clubbing, cyanosis, or edema. No obvious deformities. NEUROLOGICAL: Awake and alert. No obvious cranial nerve deficits. Motor grossly within normal limits. Five out of 5 muscle strength in the arms and legs. Normal speech. PSYCHIATRIC: Appropriate mood and affect; insight and judgment normal. Data Data Last Documented VS Orders Orders Electrocardiogram (01/03/18 02:02) Ckmb (Isoenzyme) Profile (01/03/18 02:02) Complete Blood Count With Diff (01/03/18 02:02) Comprehensive Metabolic Panel (01/03/18 02:02) Prothrombin Time / Inr (Pt) (01/03/18 02:02) Act Partial Throm Time (Ptt) (01/03/18 02:02) Troponin I (01/03/18 02:02) Lipase (01/03/18 02:02) Chest, Single Ap (01/03/18 02:02) Ecg Monitoring (01/03/18 02:02) Bilateral Bp Monitoring (01/03/18 02:02) Iv Access Insert/Monitor (01/03/18 02:02) Oximetry (01/03/18 02:02) Morphine Inj (Morphine Inj) (01/03/18 02:15) Sodium Chloride 0.9% Flush (Ns Flush) (01/03/18 02:15) Ondansetron Odt (Zofran Odt) (01/03/18 02:15) Morphine Inj (Morphine Inj) (01/03/18 02:30) CKMB (01/03/18 02:10) CKMB% (01/03/18 02:10) Ed Discharge Order (01/03/18 03:26) Labs Laboratory Tests Test 01/03/18 02:10 White Blood Count 9.8 TH/MM3 Red Blood Count 5.04 MIL/MM3 Hemoglobin 13.1 GM/DL Hematocrit 40.1 % Mean Corpuscular Volume 79.5 FL Mean Corpuscular Hemoglobin 25.9 PG Mean Corpuscular Hemoglobin Concent 32.6 % Red Cell Distribution Width 14.4 % Platelet Count 184 TH/MM3 Mean Platelet Volume 10.2 FL Neutrophils (%) (Auto) 84.1 % Lymphocytes (%) (Auto) 11.7 % Monocytes (%) (Auto) 3.5 % Eosinophils (%) (Auto) 0.1 % Basophils (%) (Auto) 0.6 % Neutrophils # (Auto) 8.2 TH/MM3 Lymphocytes # (Auto) 1.1 TH/MM3 Monocytes # (Auto) 0.3 TH/MM3 Eosinophils # (Auto) 0.0 TH/MM3 Basophils # (Auto) 0.1 TH/MM3 CBC Comment DIFF FINAL Differential Comment Prothrombin Time 20.1 SEC Prothromb Time International Ratio 2.0 RATIO Activated Partial Thromboplast Time 31.9 SEC Blood Urea Nitrogen 15 MG/DL Creatinine 0.81 MG/DL Random Glucose 125 MG/DL Total Protein 8.3 GM/DL Albumin 4.0 GM/DL Calcium Level 8.9 MG/DL Alkaline Phosphatase 52 U/L Aspartate Amino Transf (AST/SGOT) 36 U/L Alanine Aminotransferase (ALT/SGPT) 41 U/L Total Bilirubin 0.2 MG/DL Sodium Level 136 MEQ/L Potassium Level 4.5 MEQ/L Chloride Level 102 MEQ/L Carbon Dioxide Level 24.7 MEQ/L Anion Gap 9 MEQ/L Estimat Glomerular Filtration Rate 77 ML/MIN Total Creatine Kinase 136 U/L Creatine Kinase MB 1.1 NG/ML Troponin I LESS THAN 0.02 NG/ML Lipase 168 U/L MDM Medical Decision Making Medical Screen Exam Complete: Yes Emergency Medical Condition: Yes Medical Record Reviewed: Yes Differential Diagnosis On review of chart CAT scan December 25, 2017 shows pulmonary emboli seen with the right proximal interlobar and lower lobar branches, appearance suggests at least subacute to chronic component, however there may be an acute thrombus in the distal branches, there is a noncalcified nodule in the right lower lobe CT abdomen and pelvis read by radiologist on December 25, 2017 in the morning also showed no acute disease per report Left ultrasound DVT study was positive for DVT of the left calf and popliteal region as reported by radiologist Narrative Course CBC shows no leukocytosis, no anemia, no left shift, normal platelet count Patient is adequately, anticoagulated with an INR of 2.0 Electrolytes are all within normal limits, normal kidney liver and pancreatic functions. First set of troponin negative Chest x-ray read as no x-ray evidence of acute cardiopulmonary disease Diagnosis Primary Impression: Chest pain due to pulmonary embolism Patient Instructions: General Instructions, Pulmonary Embolism (GEN) Scripts Ondansetron Odt (Zofran Odt) 4 Mg Tab 4 MG SL Q6HR Y for Nausea/Vomiting, #20 TAB 0 Refills Prov: Federico Marin MD 01/03/18 Disposition: 01 DISCHARGE HOME Condition: Stable Federico Marin MD January 03, 2018 02:02
[2018-01-03 02:14] VITALS: BP_SYST 139; BP_SYST 140; BP_DIAS 100; BP_DIAS 101; O2SAT 98
[2018-01-03] MEDS ORDERED: SODIUM CHLORIDE 0.9% FLUSH 10 ML FLUSH IVF PRN (02:15)
[2018-01-03] MEDS ORDERED: MORPHINE SULFATE 4 MG/ML INJ IV PUSH ONE ×2 (02:15→02:30)
[2018-01-03] MEDS ORDERED: ONDANSETRON ODT 4 MG TAB PO ONE (02:15)
[2018-01-03 02:27] LABS: AUTOMATED NEUTROPHIL # 8.2 TH/MM3 (1.8-7.7); BASOPHIL # 0.1 TH/MM3 (0-0.2); BASOPHIL % 0.6 % (0.0-2.0); EOSINOPHIL % 0.1 % (0.0-4.0); HEMATOCRIT 40.1 % (35.0-46.0); HEMOGLOBIN 13.1 GM/DL (11.6-15.3); LYMPH % 11.7 % (9.0-44.0); LYMPHOCYTE # 1.1 TH/MM3 (1.0-4.8); MEAN CELL VOLUME 79.5 FL (80.0-100.0); MEAN CORPUSCULAR HEMOGLOBIN 25.9 PG (27.0-34.0); MEAN CORPUSCULAR HGB CONC 32.6 % (32.0-36.0); MEAN PLATELET VOLUME 10.2 FL (7.0-11.0); MONO % 3.5 % (0.0-8.0); MONOCYTE # 0.3 TH/MM3 (0-0.9); NEUT % 84.1 % (16.0-70.0); PLATELET COUNT 184 TH/MM3 (150-450); RED BLOOD COUNT 5.04 MIL/MM3 (4.00-5.30); RED CELL DISTRIBUTION WIDTH 14.4 % (11.6-17.2); WHITE BLOOD COUNT 9.8 TH/MM3 (4.0-11.0)
[2018-01-03 02:50] LABS: PROTHROMBIN TIME - PATIENT 20.1 SEC (9.8-11.6)
[2018-01-03 02:56] LABS: ALKALINE PHOSPHATASE 52 U/L (45-117); ALT (GPT) 41 U/L (10-53); AST (GOT) 36 U/L (15-37); BICARBONATE 24.7 MEQ/L (21.0-32.0); BLOOD UREA NITROGEN 15 MG/DL (7-18); CALCIUM 8.9 MG/DL (8.5-10.1); CHLORIDE 102 MEQ/L (98-107); CREATININE 0.81 MG/DL (0.50-1.00); GLOMERULAR FILTRATION RATE 77 ML/MIN (>89); GLUCOSE,RANDOM 125 MG/DL (74-106); SODIUM (NA) 136 MEQ/L (136-145); TOTAL BILIRUBIN ADULT 0.2 MG/DL (0.2-1.0); TOTAL PROTEIN 8.3 GM/DL (6.4-8.2); TROPONIN I LESS THAN 0.02 NG/ML (0.02-0.05)
--- NOTE | 2018-01-03 03:03 | RADRPT ---
EXAM DATE: 01/03/2018 3:00 AM EDT AGE/SEX: 42 years / Female INDICATIONS: Chest pain, diagnosed one week ago with a pulmonary embolism. CLINICAL DATA: This is the patient's subsequent encounter. Patient reports that signs and symptoms h ave been present for 1 week and indicates a pain score of 10/10. MEDICAL/SURGICAL HISTORY: Hypertension. Cholecystectomy. section. Hysterectomy. COMPARISON: [facility] [place], CHEST SINGLE AP, 12/24/2017. . FINDINGS: A single AP view of the chest demonstrates the lungs to be symmetrically aerated without evidence of mass, infiltrate or effusion. The cardiomediastinal contours are unremarkable. Osseous structures a re intact. CONCLUSION: No x-ray evidence of acute cardiopulmonary disease. Electronically signed by: Amilcar Ortiz MD 01/03/2018 3:01 AM EDT
[2018-01-03 03:29] VITALS: BP 139/91; PULSE 79; RESP 16; O2SAT 98
[2018-01-03] MEDS ORDERED: ZOFR4TAB3 SL (03:43)
--- NOTE | 2018-01-03 14:24 | EKG ---
Date Performed: 01/03/2018 Time Performed: 02:13:01 PTAGE: 42 years EKG: Sinus rhythm MODERATE VOLTAGE CRITERIA FOR LVH, CONSIDER NORMAL VARIANT BORDERLINE ECG Compared to PREVIOUS TRACING , QRS voltage slightly greater, otherwise no significant change. PREVIOU S TRACIN12/24/2017 04.21 DOCTOR: Jeffrey Navarro Interpretating Date/Time 01/03/2018 14:23:19
== END 2018-01-03 04:08 | disposition home or self-care (01) ==
LOC: NEPE 01:48
DX: I26.99 Other pulmonary embolism without acute cor pulmonale (principal); Z79.01 Long term (current) use of anticoagulants
CPT/HCPCS: 71045; 80053; 82550; 82552; 83690; 84484; 85025; 85610; 85730; 93005; 96374; 96376; 99285; J2270